=== PATIENT | female | born 1985 | race Caucasian/White ===

== ENCOUNTER 2024-03-08 11:08 | Outpatient (CLI) | payer OTHER, SELFPAY ==
[2024-03-08 12:35] LABS: Basophils Percent Auto 0.4 % (0.2-1.2); Eosinophils Percent Auto 0.5 % (0-4.4); Hematocrit 35.2 % (37.0-47.0); Hemoglobin 12.1 g/dL (12.0-15.0); Immature Granulocyte Absolute 0.02 K/mm3 (0.00-0.031); Immature Granulocyte Percent A 0.3 % (0-0.5); Lymphocytes Absolute Auto 1.65 K/mm3 (0.9-3.2); Lymphocytes Percent Auto 21.3 % (18.3-44.2); Mean Corpuscular HGB Conc 34.4 g/dl (32-36); Mean Corpuscular Hemoglobin 31.3 pg (26-34); Mean Corpuscular Volume 91.2 fl (80-100); Mean Platelet Volume 9.3 fl (7.4-10.4); Monocytes Absolute Auto 0.6 K/mm3 (0.1-0.6); Monocytes Percent Auto 7.2 % (2.6-8.5); Neutrophils Absolute Auto 5.4 K/mm3 (1.3-6.7); Neutrophils Percent Auto 70.3 % (45.5-73.1); Platelet Count Result 370 k/mm3 (150-375); Red Blood Count 3.86 M/mm3 (4.2-5.4); Red Cell Distribution Width 12.3 % (11.5-14.5); White Blood Count 7.7 K/mm3 (4.5-10.0)
[2024-03-08 13:24] LABS: HIV 1/2 Ab P24 Ag Result Negative (Negative)
[2024-03-08 13:34] LABS: Hepatitis B Surface Antigen Negative (Negative)
[2024-03-08 15:25] LABS: Rapid Plasma Reagin Non-Reactive (NonReactive)
[2024-03-11 16:08] LABS: CMV IgG Antibody <0.60 U/mL
[2024-03-17 08:08] LABS: CF Result NEGATIVE (NEGATIVE)
== END 2024-03-08 11:09 | disposition home or self-care (01) ==
PROVIDERS: Visit Provider Student in an Organized Health Care Education/Training Program
DX: N94.89 Other specified conditions associated with female genital organs and menstrual cycle (principal)
CPT/HCPCS: 36415; 81220; 84702; 85025; 86592; 86644; 86703; 86747; 86762; 86787; 86850; 86900; 86901; 87086; 87340; G0432

== ENCOUNTER 2024-06-28 10:28 | Outpatient (CLI) | payer OTHER, SELFPAY ==
[2024-06-28 12:10] LABS: Basophils Percent Auto 0.2 % (0.2-1.2); Eosinophils Absolute Auto 0.2 K/mm3 (0-0.3); Eosinophils Percent Auto 1.9 % (0-4.4); Hematocrit 35.3 % (37.0-47.0); Hemoglobin 11.6 g/dL (12.0-15.0); Immature Granulocyte Absolute 0.04 K/mm3 (0.00-0.031); Immature Granulocyte Percent A 0.4 % (0-0.5); Lymphocytes Absolute Auto 1.45 K/mm3 (0.9-3.2); Lymphocytes Percent Auto 14.4 % (18.3-44.2); Mean Corpuscular HGB Conc 32.9 g/dl (32-36); Mean Corpuscular Hemoglobin 30.1 pg (26-34); Mean Corpuscular Volume 91.5 fl (80-100); Mean Platelet Volume 8.8 fl (7.4-10.4); Monocytes Absolute Auto 0.6 K/mm3 (0.1-0.6); Monocytes Percent Auto 6.4 % (2.6-8.5); Neutrophils Absolute Auto 7.7 K/mm3 (1.3-6.7); Neutrophils Percent Auto 76.7 % (45.5-73.1); Platelet Count Result 358 k/mm3 (150-375); Red Blood Count 3.86 M/mm3 (4.2-5.4); White Blood Count 10.1 K/mm3 (4.5-10.0)
[2024-06-28 12:21] LABS: Glucose 1 Hour PP 50gm Dose 106 mg/dL
[2024-06-28 13:04] LABS: HIV 1/2 Ab P24 Ag Result Negative (Negative)
[2024-06-28 13:30] LABS: Rapid Plasma Reagin Non-Reactive (NonReactive)
== END 2024-06-28 10:29 | disposition home or self-care (01) ==
LOC: ANHLAB 10:30
PROVIDERS: Visit Provider Obstetrics & Gynecology
DX: Z34.90 Encounter for supervision of normal pregnancy, unspecified, unspecified trimester (principal); Z3A.00 Weeks of gestation of pregnancy not specified
CPT/HCPCS: 36415; 82947; 85025; 86592; 86703; G0432

== ENCOUNTER 2024-08-06 14:18 | Outpatient (RCR) | payer OTHER, SELFPAY ==
[2024-07-30 16:44] VITALS: BP 111/69; PULSE 85
[2024-08-03 14:45] VITALS: BP 111/69; PULSE 82
--- NOTE | ~2024-08-06 | US_ITS ---
EXAMINATION: US OB BPP wo non-stress DATE: 08/06/2024 15:20 PIPELINE EXECUTIVE INDICATION: Advanced maternal age TECHNIQUE: Real-time transabdominal obstetric ultrasound. FINDINGS: There is a single intrauterine gestation in vertex presentation. The placenta is posterior without p lacenta previa. cardiac activity and movement is noted with a heart rate of 138 beats per minute. Biophysical profile: breathin of 2 movement: 2 of 2 tone: 2 of 2 Amniotic fluid pocket: 2 of 2. The deepest vertical pocket measurement ranges from 3.6 to 4 cm Total score: 8 of 8 IMPRESSION: 1. Single intrauterine gestation in vertex presentation. 2: Total biophysical profile score of 8 out of 8. Reviewed, dictated and finalized at location A. LINE EXECUTIVE
--- NOTE | ~2024-08-06 | US_ITS ---
EXAMINATION: US OB BPP wo non-stress DATE: 07/30/2024 18:53 APPLICATIONS PACKAGER INDICATION: Advanced maternal age. 1. TECHNIQUE: Real-time transabdominal obstetric ultrasound. FINDINGS: There is a single intrauterine gestation in vertex presentation. The placenta is anterior without pl acenta previa. cardiac activity and movement is noted with a heart rate of 143 beats per minute. Biophysical profile: breathin of 2 movement: 2 of 2 tone: 2 of 2 Amniotic fluid pocket: 2 of 2 (deepest vertical pocket is 4.8 cm) Total score: 8 of 8 IMPRESSION: 1. Single intrauterine gestation in vertex presentation. 2: Total biophysical profile score of 8 out of 8. Reviewed, dictated and finalized at location A. ICATIONS PACKAGER
[2024-08-06 14:54] VITALS: BP 111/69; PULSE 84
== END 2024-10-28 23:59 | disposition home or self-care (01) ==
LOC: ANHOBOP 14:18
PROVIDERS: Visit Provider Student in an Organized Health Care Education/Training Program
DX: O09.513 Supervision of elderly primigravida, third trimester (principal); Z3A.32 32 weeks gestation of pregnancy
CPT/HCPCS: 59025; 76819

== ENCOUNTER 2024-09-22 16:02 | Inpatient (IN) | payer OTHER, SELFPAY ==
[2024-09-22] VITALS (55 sets, daily range): BP systolic 116–150; BP diastolic 57–83; PULSE 80–198; TEMP 36.3–36.8; O2SAT 97–100; BMI 35.2
--- OUTSIDE RECORDS SUMMARY | 2024-09-22 16:11 | XMS_ITS | Data Portability ---
Author Organization [employer], Main Office Address [address] [place] [address] Assessment No assessment recorded. Plan of Treatment Reminders Order Date Submit Date Provider Last Modified By Organization Details Last Modified Time Details Appointments None recorded. Lab None recorded. Referral oral & maxillofac ial surgeon referral - Please call patient to schedule. She is aware that you are not in network with . 2022 023 [email or web address] Radha Oral & Maxillofacial Surgeon, [address] [place] [address], [address], 4 09:00:21 oral & maxillofac ial surgeon referral 2022 023 [email or web address] 3 Ran Gtz MD, [address] [facility], [place], [address], 3 08:51:44 dermatolog ist referral 2022 023 [email or web address] 3 [facility], [address] [place], [address], 3 07:28:51 Procedures None recorded. Surgeries None recorded. Imaging None recorded. Medication Orders cyclobenza wendi 10 mg tablet 2022 023 ZAINAB [id number], [address] , [place], [place], [id number], 3 11:34:16 cyclobenza wendi 5 mg tablet 2022 023 [email or web address] 3 [facility], [address], [place], [place], [id number], 14:18:27 Patient TargetsNo targets recorded. Patient InstructionsNo instructions recorded. Reason for Referral Oral & Maxillofacial Surgeon Referral for Pain of right temporomandibular joint Referring Physician: Brandon Webster [facility], Encounter Date: 03/17/2023 Weigher And Mixer Referral for E czema Referring Physician: Brandon Webster [facility], Encounter Date: 03/17/2023 Oral & Maxillofacial Surgeon Referral for Pain of right temporomandibular joint Please call patient to schedule. She is aware that you are not in network with . Referring Physician: Josh Rincon [facility], Encounter Date: 07/21/2023 Results Created Date Observation Date Name Description Value Unit Range Abnormal Flag Note LastModifiedBy Organization Detail LastModifiedTime 06/03/20 22 06/08/2022 GENEVA/A NTINU CLEAR ANTIB ODIES ,IFA antinuclear antibodies, ifa negati ve Negat kath <1:80 Borde rline 1:80 Posit kath >1:80 ICAP nomen clatu re: AC-0 For more infor ana maría copeland about Hep-2 cell patte rns use ANApa ttern s.org , the offic ial tarsha te for the Inter natio nal Conse nsus on Antin uclea r Antib angelique (GENEVA) Patte rns (ICAP ). Perfo rmed at: [facility] [place] [address] Lab Direc tor: Ash gallardo PhD, Phone : [phone] Not Available [facility] (Lab) [address] [place], [address], 06/08/2022 08:14:43 06/03/20 22 06/03/2022 SEDIM ENTAT ION RATE erythrocyte sedimentatio n rate 20 mm/HR 0-20 Not Available [facility] (Lab) [address] [place], [address], 06/03/2022 13:54:19 06/03/20 22 06/03/2022 CBC/C OMPLE TE BLD COUNT W/DIF F white blood cells 5.0 x10'3 /uL 4.2-10 .8 Not Available [facility] (Lab) [address] [place], [address], 06/03/2022 13:49:14 06/03/20 22 06/03/2022 CBC/C OMPLE TE BLD COUNT W/DIF F red blood cells 4.21 x10'6 /uL 3.80-5 .20 Not Available [facility] (Lab) [address] [place], [address], 06/03/2022 13:49:14 06/03/20 22 06/03/2022 CBC/C OMPLE TE BLD COUNT W/DIF F hemoglobin 12.8 g/dL 12.0-1 5.6 Not Available [facility] (Lab) [address] [place], [address], 06/03/2022 13:49:14 06/03/20 22 06/03/2022 CBC/C OMPLE TE BLD COUNT W/DIF F hematocrit 38.7 % 35.7-4 5.7 Not Available [facility] (Lab) [address] [place], [address], 06/03/2022 13:49:14 06/03/20 22 06/03/2022 CBC/C OMPLE TE BLD COUNT W/DIF F mean red cell volume 91.9 fL 82.0-9 9.0 Not Available [facility] (Lab) [address] [place], [address], 06/03/2022 13:49:14 06/03/20 22 06/03/2022 CBC/C OMPLE TE BLD COUNT W/DIF F mean red cell hemoglobin 30.4 pg 27.0-3 3.0 Not Available [facility] (Lab) [address] [place], [address], 06/03/2022 13:49:14 06/03/20 22 06/03/2022 CBC/C OMPLE TE BLD COUNT W/DIF F mean RBC HGB concentratio n 33.1 g/dL 31.0-3 6.0 Not Available [facility] (Lab) [address] [place], [address], 06/03/2022 13:49:14 06/03/20 22 06/03/2022 CBC/C OMPLE TE BLD COUNT W/DIF F red cell distribution width 12.1 % 11.8-1 5.5 Not Available [facility] (Lab) [address] [place], [address], 06/03/2022 13:49:14 06/03/20 22 06/03/2022 CBC/C OMPLE TE BLD COUNT W/DIF F platelets 369 x10'3 /uL 150-40 0 Not Available [facility] (Lab) [address] [place], [address], 06/03/2022 13:49:14 06/03/20 22 06/03/2022 CBC/C OMPLE TE BLD COUNT W/DIF F mean platelet volume 9.6 fL 9.0-12 .4 Not Available [facility] (Lab) [address] [place], [address], 06/03/2022 13:49:14 06/03/20 22 06/03/2022 CBC/C OMPLE TE BLD COUNT W/DIF F neutrophils 57.9 % 39.0-7 2.0 Not Available [facility] (Lab) [address] [place], [address], 06/03/2022 13:49:14 06/03/20 22 06/03/2022 CBC/C OMPLE TE BLD COUNT W/DIF F lymphocytes 30.2 % 16.0-4 7.0 Not Available [facility] (Lab) [address] [place], [address], 06/03/2022 13:49:14 06/03/20 22 06/03/2022 CBC/C OMPLE TE BLD COUNT W/DIF F monocytes 7.5 % 5.0-12 .0 Not Available [facility] (Lab) [address] [place], [address], 06/03/2022 13:49:14 06/03/20 22 06/03/2022 CBC/C OMPLE TE BLD COUNT W/DIF F eosinophils 3.4 % 1.0-7. 0 Not Available [facility] (Lab) [address] [place], [address], 06/03/2022 13:49:14 06/03/20 22 06/03/2022 CBC/C OMPLE TE BLD COUNT W/DIF F basophils 0.8 % 0.0-2. 0 Not Available [facility] (Lab) [address] [place], [address], 06/03/2022 13:49:14 06/03/20 22 06/03/2022 CBC/C OMPLE TE BLD COUNT W/DIF F immature granulocytes 0.2 % 0.00-0 .50 Not Available [facility] (Lab) [address] [place], [address], 06/03/2022 13:49:14 06/03/20 22 06/03/2022 CBC/C OMPLE TE BLD COUNT W/DIF F neutrophils, absolute count 2.92 x10'3 /uL 1.5-8. 0 Not Available [facility] (Lab) [address] [place], [address], 06/03/2022 13:49:14 06/03/20 22 06/03/2022 CBC/C OMPLE TE BLD COUNT W/DIF F lymphocytes, absolute count 1.52 x10'3 /uL 1.07-3 .43 Not Available [facility] (Lab) [address] [place], [address], 06/03/2022 13:49:14 06/03/20 22 06/03/2022 CBC/C OMPLE TE BLD COUNT W/DIF F monocytes, absolute count 0.38 x10'3 /uL 0.29-0 .99 Not Available [facility] (Lab) [address] [place], [address], 06/03/2022 13:49:14 06/03/20 22 06/03/2022 CBC/C OMPLE TE BLD COUNT W/DIF F eosinophils, absolute count 0.17 x10'3 /uL 0.02-0 .53 Not Available [facility] (Lab) [address] [place], [address], 06/03/2022 13:49:14 06/03/20 22 06/03/2022 CBC/C OMPLE TE BLD COUNT W/DIF F basophils, absolute count 0.04 x10'3 /uL 0.01-0 .08 Not Available [facility] (Lab) [address] [place], [address], 06/03/2022 13:49:14 06/03/20 22 06/03/2022 CBC/C OMPLE TE BLD COUNT W/DIF F immature granulocytes ,absolute 0.01 x10'3 /uL 0.00-0 .05 Not Available [facility] (Lab) [address] [place], [address], 06/03/2022 13:49:14 06/03/20 22 06/03/2022 CBC/C OMPLE TE BLD COUNT W/DIF F nucleated red blood cells 0.0 % -0 Not Available [facility] (Lab) [address] [place], [address], 06/03/2022 13:49:14 11/11/06/03/2022 CBC/C OMPLE TE BLD COUNT W/DIF F NRBC# 0.00 x10'3 /uL Not Available [facility] (Lab) [address] [place], [address], 06/03/2022 13:49:14 06/03/20 22 06/03/2022 C REACT KATH PROTE IN,UL TRA SENS C-reactive protein 0.28 mg/dL 0.0-0. 5 Not Available [facility] (Lab) [address] [place], [address], 06/03/2022 13:18:18 06/03/20 22 06/03/2022 RHEUM ATOID FACTO R rf <8.6 IU/mL 0.0-11 .9 Not Available [facility] (Lab) [address] [place], [address], 06/03/2022 13:18:14 06/03/20 22 06/03/2022 COMPR EHENS KATH METAB OLIC PANEL sodium 140 mmol/ L 137-14 5 Not Available [facility] (Lab) [address] [place], [address], 06/03/2022 13:16:46 06/03/20 22 06/03/2022 COMPR EHENS KATH METAB OLIC PANEL potassium 4.3 mmol/ L 3.5-5. 1 Not Available [facility] (Lab) [address] [place], [address], 06/03/2022 13:16:46 06/03/20 22 06/03/2022 COMPR EHENS KATH METAB OLIC PANEL chloride 104 mmol/ L 98-107 Not Available [facility] (Lab) [address] [place], [address], 06/03/2022 13:16:46 06/03/20 22 06/03/2022 COMPR EHENS KATH METAB OLIC PANEL carbon dioxide 27 mmol/ L 22-30 Not Available [facility] (Lab) [address] [place], [address], 06/03/2022 13:16:46 06/03/20 22 06/03/2022 COMPR EHENS KATH METAB OLIC PANEL anion gap 13.3 mmol/ L 14-22 low Not Available [facility] (Lab) [address] [place], [address], 06/03/2022 13:16:46 06/03/20 22 06/03/2022 COMPR EHENS KATH METAB OLIC PANEL glucose 91 mg/dL 70-99 Not Available [facility] (Lab) [address] [place], [address], 06/03/2022 13:16:46 06/03/20 22 06/03/2022 COMPR EHENS KATH METAB OLIC PANEL BUN 10 mg/dL 8-19 Not Available [facility] (Lab) [address] [place], [address], 06/03/2022 13:16:46 06/03/20 22 06/03/2022 COMPR EHENS KATH METAB OLIC PANEL creatinine 0.68 mg/dL 0.66-1 .25 Not Available [facility] (Lab) [address] [place], [address], 06/03/2022 13:16:46 06/03/20 22 06/03/2022 COMPR EHENS KATH METAB OLIC PANEL GFR >60 Refer ence Range : Forsan ge GFR Healt hy Adult : >60 mL/mi n/1.7 3 m2 Chron ic Kidne y Disea se: 15-60 mL/mi n/1.7 3 m2 Kidne y Failu re: <15/m L/min /1.73 m2 www.n iddk. nih.g ov The MDRD study equat ion has not been valid ated in child forrest <18 years of age; pregn ant women ; the elder ly >85 years of age; or in some racia l or ethni c subgr oups, such as Hispa nics. Outsi de the valid ated genet eters , estim ated GFR is less accur ate, requi ring clini vishal judgm ent on a case- by-ca se basis . Clini vishal inter preta tion for other races and ages must be made by the clini kishan. The MDRD study equat ion has not been valid ated for the evalu ation of serum creat inine relat ed to nutri andrea l statu s or medic ation usage . For perso ns <18 years of age, a pedia tric GFR calcu lator is avail able on the [facility] websi te: https ://pabol w.kid juan pablo.o rg/pr ofess ional s/kdo qi/gf r_cal culat or Not Available [facility] (Lab) [address] [place], [address], 06/03/2022 13:16:46 06/03/20 22 06/03/2022 COMPR EHENS KATH METAB OLIC PANEL alkaline phosphatase 62 U/L 38-126 Not Available [facility] (Lab) [address] [place], [address], 06/03/2022 13:16:46 06/03/20 22 06/03/2022 COMPR EHENS KATH METAB OLIC PANEL alanine aminotransfe rase 12 U/L 0-35 Not Available [facility] (Lab) [address] [place], [address], 06/03/2022 13:16:46 06/03/20 22 06/03/2022 COMPR EHENS KATH METAB OLIC PANEL aspartate aminotransfe rase 12 U/L 15-37 low Not Available [facility] (Lab) [address] [place], [address], 06/03/2022 13:16:46 06/03/20 22 06/03/2022 COMPR EHENS KATH METAB OLIC PANEL bilirubin, total 1.50 mg/dL 0.20-1 .30 high Not Available [facility] (Lab) [address] [place], [address], 06/03/2022 13:16:46 06/03/20 22 06/03/2022 COMPR EHENS KATH METAB OLIC PANEL calcium 9.7 mg/dL 8.4-10 .2 Not Available [facility] (Lab) [address] [place], [address], 06/03/2022 13:16:46 06/03/20 22 06/03/2022 COMPR EHENS KATH METAB OLIC PANEL total protein 7.4 g/dL 6.3-8. 2 Not Available [facility] (Lab) [address] [place], [address], 06/03/2022 13:16:46 06/03/20 22 06/03/2022 COMPR EHENS KATH METAB OLIC PANEL albumin 4.5 g/dL 3.4-5. 0 Not Available [facility] (Lab) [address] [place], [address], 06/03/2022 13:16:46 06/03/20 22 06/03/2022 COMPR EHENS KATH METAB OLIC PANEL globulin 2.9 g/dL 2.6-4. 2 Not Available [facility] (Lab) [address] [place], [address], 06/03/2022 13:16:46 06/03/20 22 06/03/2022 COMPR EHENS KATH METAB OLIC PANEL A/G ratio 1.6 ratio 1.0-2. 0 Not Available [facility] (Lab) [address] [place], [address], 06/03/2022 13:16:46 06/03/20 22 06/03/2022 LIPID PANEL cholesterol 201 mg/dL 140-19 9 high NIH THOMAS NSUS RECOM MENDA TION FOR JLUIS STERO L: ADULT CHILD LOW RISK: <200 <170 BORDE RLINE : <200- 239 ----- HIGH RISK: >240 >200 Not Available [facility] (Lab) [address] [place], [address], 06/03/2022 13:16:41 06/03/20 22 06/03/2022 LIPID PANEL triglyceride s 54 mg/dL 0-150 NIH THOMAS NSUS REPOR T RECOM MENDA TION FOR TRIGL YCERI MORGAN: ADULT CHILD LOW RISK: <150 ----- BODER LINE: 150-1 99 ----- HIGH RISK: >200 ----- Not Available [facility] (Lab) [address] [place], [address], 06/03/2022 13:16:41 06/03/20 22 06/03/2022 LIPID PANEL HDL cholesterol 71 mg/dL 40- Not Available [facility] (Lab) [address] [place], [address], 06/03/2022 13:16:41 06/03/20 22 06/03/2022 LIPID PANEL LDL cholesterol, calculated 119 mg/dL 0-130 NIH THOMAS NSUS REPOR T RECOM MENDA TIONS FOR LDL: ADULT CHILD LOW RISK <130 <110 (OPTI MAL LDL) <100 ----- BORDE RLINE : 130-1 59 ----- HIGH RISK: >160 >130 A TRIGL YCERI DE RESUL T >400 INVAL IDATE S THE CALCU LATIO N FOR LDL FRACT IONAT ION - THE LDL RESUL T WILL NOT BE REPOR CARLO. Not Available [facility] (Lab) [address] [place], [address], 06/03/2022 13:16:41 Result Notes None recorded. 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 Procedures Surgical History Date Name Laterality Status Provider Name and Address Organization Details Recorded Time surgery on study models of jaws completed Not Available [facility], [facility] 09/22/2022 01:23:44 Imaging Results None recorded. Procedure Notes None recorded. Medical Equipment None Reported. Allergies Allergen ID Allergen Name Allergen Category Reaction Reaction Severity Criticality Documentation Date Start Date Code Code System Note Provider Name and Address Organization Details Recorded Time 78421 Product containin g penicilli n (product) medicatio n Not available Not available Not available 09/22/2022 51458 8001 SNOMED Not Available [facility], [facility] 3 01:25:37 Medications Name Sig Start Date Stop Date Status Note LastModified by Organization Details LastModified Time cyclobenzap rine 10 mg tablet TAKE 1 TABLET BY MOUTH EVERY DAY AT BEDTIME 2023 active Not Available Not Available Not Avai lable azithromyci n 250 mg tablet TAKE 2 TABLETS BY MOUTH FOR 1 DAY THEN TAKE 1 TABLET BY MOUTH EVERY DAY 06/03 completed Not Available Not Available Not Available clobetasol 0.05 % topical cream APPLY TOPICALLY TO THE AFFECTED AREA TWICE DAILY NEEDED FOR RASH 06/03 completed Not Available Not Available Not Available ondansetron 4 mg disintegrat ing tablet DISSOLVE 1 TABLET ON THE TONGUE EVERY 8 HOURS NEEDED 06/03 completed Not Available Not Available Not Available cyclobenzap rine 5 mg tablet Take 1 tablet every day by oral route at bedtime. active Not Available Not Available No t Available Lo Loestrin Fe 1 mg-10 mcg (24)/10 mcg (2) tablet TAKE 1 TABLET BY MOUTH DAILY 06/03 completed Not Available Not Available Not Available Paxlovid 300 mg (150 mg x 2)-100 mg tablets in a dose pack TAKE 3 TABLETS BY MOUTH BID FOR 5 DAYS 06/03 completed Not Available Not Available Not Available Vitals Date Recorded Body mass index (BMI) Body height Oxygen saturation Oxygen saturation in Arterial blood by Pulse oximetry Heart rate Body temperature Body weight Systolic blood pressure Diastolic blood pressure Provider Name and Address Organization Details Last Updated DateTime 2 26.3 kg/m2 172.72 cm 99 % 99 % 83 /min 97.2 [degF] 25674.4 8 g 122 mm[Hg] 78 mm[Hg] Not Available [facility] 3 01:24:19 Date Recorded Body height Body mass index (BMI) Body weight Body temperature Heart rate Oxygen saturation Oxygen saturation in Arterial blood by Pulse oximetry Systolic blood pressure Diastolic blood pressure Provider Name and Address Organization Details Last Updated DateTime 3 172.72 cm 27.1 kg/m2 83240.4 4 g 97.8 [degF] 94 /min 98 % 98 % 120 mm[Hg] 72 mm[Hg] Antonia medley CMA [employer] 3 10:21:33 Date Recorded Body height Body mass index (BMI) Body weight Body temperature Heart rate Oxygen saturation Oxygen saturation in Arterial blood by Pulse oximetry Systolic blood pressure Diastolic blood pressure Provider Name and Address Organization Details Last Updated DateTime 3 172.72 cm 24.9 kg/m2 19384.1 5 g 97.8 [degF] 102 /min 98 % 98 % 128 mm[Hg] 82 mm[Hg] Karen Hart MA [employer] 3 11:19:27 Social History None recorded. Functional Status None recorded. Mental Status None recorded. Family History Relationship Description Onset Age of this Age Resolved Age Notes LastModified by Organization Details LastModified Time Maternal Grandmother Rheumatoid arthritis [id number] Not available 09/22/2022 01:23:46 Mother Arthritis [id number] Not available 09/22/2022 01:23:46 Maternal Grandfather Diabetes mellitus [id number] Not available 09/22/2022 01:23:46 Medical History Condition Response BLINDNESS N RHEUMATIC FEVER N KIDNEY STONES N BLADDER PROBLEMS N MRSA N OTHER # 1 N POLIO N LUNG DISEASE/DISORDER N HISTORY OF DRUG ABUSE N RADIATION / CHEMOTHERAPY N COPD N Other # 2 N BLOOD DISEASES N SURGERY N EAR OR HEARING PROBLEMS N MUMPS N SHINGLES N FEMALE PROBLEMS / INFECTIONS N DEPRESSION (INCLUDING POST ) N BOWEL PROBLEMS N STROKE/TIA N THYROID DISEASE N ULCERS N BENIGN PROSTATIC HYPERPLASIA N MEASLES N CERVICALGIA N TB SKIN TEST N HYPOTENSION N MYOCARDIAL INFARCTION N PARAPELGIA N OBESITY N GERD/NAUSEA N ANEURYSM N URINARY/BLADDER/KIDNEY PROBLEMS N CORONARY ARTERY DISEASE (CAD) N MENIERE'S DISEASE N ADDICTION CONCERNS N ENDOMETRIOSIS N USE OF BLOOD THINNERS N SKIN PROBLEMS N EMPHYSEMA N GASTROINTESTINAL DISORDER N MUSCLE,JOINT OR BONE PROBLEMS N GASTROINTESTINAL BLEEDING N BLOOD CLOTS N ASTHMA N CATARACTS N ERECTILE DYSFUNCTION N GI PROBLEMS N CHF N Low Testosterone N NEUROPATHY N INFERTILITY N AIDS/HIV N FRACTURES N CHEMOTHERAPY / RADIATION N VISION/EYE PROBLEMS N LIVER DISEASE N MALE HYPOGONADISM N HYPERTENSION N TOURETTE'S N ANXIETY DISORDER Y BLOOD TRANSFUSION N ANEMIA/BLOOD DISORDER N CHRONIC EAR INFECTIONS N BRONCHITIS N TUBERCULOSIS N GLAUCOMA N FOOT PROBLEM N DIVERTICULITIS N SLEEP APNEA N CHICKENPOX N ALLERGIES/HAYFEVER N INFECTIOUS DISEASE N PROSTATE N HEART ARRHYTHMIA N INSOMNIA N HIGH CHOLESTEROL / HYPERLIPIDEMIA N EYE PROBLEMS N HYPERTHYROIDISM N EATING DISORDER N EDEMA N CHRONIC PAIN SYNDROME N CAROTID BLOCKAGE N CONSTIPATION N BACK / NECK PROBLEMS N HAVE YOU BEEN HOSPITALIZED OR SEEN IN [facility] IN THE PAST YEAR ? N ATHEROSCLEROSIS N BREAST PROBLEMS N DIALYSIS N ECZEMA N FIBROMYALGIA N OSTEOPOROSIS N ARTHRITIS N NO SIGNIFICANT PAST MEDICAL HISTORY N APPENDICITIS N DIABETES, TYPE N BAD TEETH N HEARTBURN / REFLUX N ADD/ADHD N AUTISM SPECTRUM DISORDER (ASD) N HEPATITIS / LIVER DISEASE N PULMONARY DISEASE N GOUT N SLEEP DISORDER N ALZHEIMER'S DISEASE N PAIN N DEMENTIA N HERPES N SEIZURES/EPILEPSY N HEADACHES/MIGRAINES N VASCULAR DISEASE N PACEMAKER N DIZZINESS N HEART DISEASE/HEART PROBLEMS N KIDNEY DISEASE N SCARLET FEVER N MULTIPLE SCLEROSIS N DEVELOPMENTAL OR BEHAVIORAL DISORDERS N MENTAL DISORDER/ILLNESS N CANCER: SPECIFY N CARDIAC ARRHYTHMIA N PNEUMONIA N ATRIAL FIBRILLATION N Gall Stones N PULMONARY EMBOLISM N AUTOIMMUNE DISEASE N Gynecological History Statement/Question Response Abnormal Pap N Flow Moderate Date of LMP 06/02/2022 STIs/STDs N Date of Last Pap 06/22/2020 Duration of Flow (days) 5 Current Control Method None How many live births 0 Frequency of Cycle (Q days) 27 Sexually Active? Y Menses Monthly Y Obstetrics History GPAL:G 0 P 0 0 0 0 Past Encounters Encounter ID Performer Location Encounter Start Date Encounter Closed Date Diagnosis/Indication Diagnosis SNOMED-CT Code Diagnosis ICD10 Code Diagnosis Note [id number] [facility] [address] [place] [address] [place] [address] 06/03/2022 00:00:00 06/03/2022 17:17:35 [id number] Brandon Webster MD [facility] [address] [place] [address] [place] [address] 03/17/2023 10:12:08 03/17/2023 10:33:07 Eczema 38053785 L30.9 Pain of ri ght temporomandibular joint 2680161026 6242609 M26.621 Pt to use heat and use cyclobenza wendi again at night time. [id number] CHUCKY Davis [facility] [address] [place] [address] [place] [address] 07/21/2023 11:12:13 07/21/2023 11:37:03 Pain of right temporomandibular joint 3742925197 6189584 M26.621 Anxiety 16924074 F41.9 Chronic post-traumatic stress disorder 560341336 F43.12 Health Concerns Section Related Observation LastModified by Organization Detai ls LastModified Time None Recorded Concern Status LastModified by Organization Details LastModified Time None Recorded Advance Directives Directive None Recorded Payers Encounter Date Sequence Insurance Name Policy Number Policy Parra Covered Member ID Prara Member ID Guarantor Name 03/17/2023 1 FOR LIFE () Danii Arreola [id number] Danii Arreola 07/21/2023 1 EAST - DOS PRIOR TO 2024 - [employer] () Danii Arreola [id number] Danii Arreola Notes Date Note Type Note Provider Name and Address Organization Details Recorded Time 03/17/2023 text/html Here today for T MJ of Right side. Got a maxillo facial doctor in [facility] and needs referral to this doctor. Her TMJ is getting worse. When opens mouth it hurts. The cyclobenzaprine did help. But got sleep paralysis one night and is afraid to take it again. She feels that her right jaw is tight. Not using heat. Brandon Webster MD [address] [facility] [address], [place], [address], [facility] [employer] [facility] 03/18/2023 14:23:15 07/21/2023 text/html right TMJ . the specialist in [place] does not treat TMJ CHUCKY Davis [address] [facility] [address], [place], [address], [facility] 07/23/2023 20:25:16 OBGyn Episode No OBEpisode recorded.
--- OUTSIDE RECORDS SUMMARY | 2024-09-22 16:11 | XMS_ITS | Continuity of Care Document ---
Author Name [facility] Organization [facility] Care Team Providers Care Transition Lead Name Role Phone [facility] Unavailable Unavailable Problems Combined list of problems from Department of Defense and Veterans Affairs facilities. It does not include entries that were removed or entered in error. Problem Status Onset Date Problem Type Date of Resolution Comments Source Observation For Suspected Condition Inactive Condition DoD Medications Combined list of outpatient medications from Department of Defense and Veterans Affairs facilities.Medications provided include 1) outpatient medications from the last 15 months, and 2) patient-reported medications. Medication Details Route Status Patient Instructions Prescription Expires Prescription Number Last Dispense Date Ordering Provider Order Date Order Qty Source CYCLOBENZAP RINE HCL (cyclobenza wendi HCl), 10 MG, TABLET, ORAL, TEVA [place], 1000 ea. BOTTLE Active [id number] 4 2023 30 Pharmac y Data Transac tion Service Facilit y CYCLOBENZAP RINE HCL (cyclobenza wendi HCl), 10 MG, TABLET, ORAL, TEVA [place], 1000 ea. BOTTLE Active [id number] 4 2023 30 Pharmac y Data Transac tion Service Facilit y CYCLOBENZAP RINE HCL (cyclobenza wendi HCl), 10 MG, TABLET, ORAL, TEVA [place], 1000 ea. BOTTLE Active [id number] 3 2022 30 Pharmac y Data Transac tion Service Facilit y CYCLOBENZAP RINE HCL (cyclobenza wendi HCl), 10 MG, TABLET, ORAL, TEVA [place], 1000 ea. BOTTLE Active [id number] 4 2023 30 Pharmac y Data Transac tion Service Facilit y CYCLOBENZAP RINE HCL (cyclobenza wendi HCl), 5 MG, TABLET, ORAL, ADVAGEN PHARMA, 500 ea. BOTTLE Cancele d [id number] : 2023 0 Pharmac y Data Transac tion Service Facilit y IBUPROFEN (ibuprofen) , 600 MG, TABLET, ORAL, STRIDES PHARMA, 500 ea. BOTTLE Active [id number] 4 2023 40 Pharmac y Data Transac tion Service Facilit y IBUPROFEN (ibuprofen) , 600 MG, TABLET, ORAL, STRIDES PHARMA, 500 ea. BOTTLE Active [id number] 4 2023 20 Pharmac y Data Transac tion Service Facilit y METHYLPREDN ISOLONE (methylpred nisolone), 4 MG, TAB DS PK, ORAL, ZYDUS PHARMACEU, 21 ea. DOSE-PACK Active [id number] 4 2023 21 Pharmac y Data Transac tion Service Facilit y Allergies, Adverse Reactions, Alerts Combined list of allergies from Department of Defense and Veterans Affairs facilities. It does not include entries that were removed or entered in error. Substance Category Reaction Severity Reaction type Status Date Reported Comments Source PENICILLINS Drug allergy (disorder) Unknown active 8 [place], [place] Immunizations Combined list of available immunizations from the Department of Defense and Veterans Affairs facilities. Immunization Series Date Given Administered By Site Reaction Lot Number CVX Code Drug Executive Director Global Brand Marketing Status Comments Source influenza, injectable, quadrivalent, preservative free 2019 SILVIO, () Not Given influenza , injectabl e, quadrival ent, preservat beatris free DoD Encounters Combined list of: 1) Encounters from Department of Veterans Affairs facilities going backup to the last 18 months, not all [place] inpatient encounters are included; 2) Encounters from the Department of [facility] facilities going backup to 280 months. Location Location Details Encounter Type Encounter Number Reason For Visit Attending Provider ADM Date DC Date Status Disposition Source [place], [place](E[place] Room) OUTPATIENT [id number] RICKY STONE 01/09 Released w/o Limitations [place], [place]([facility] Room) Social History Combined list of available smoking, tobacco, and other social history from Department of Defense and Veterans Affairs facilities. Social History Type Response Date Comment Sour e This section is an empty social history section. [facility]
--- OUTSIDE RECORDS SUMMARY | 2024-09-22 16:12 | XMS_ITS | Clinical Summary ---
Author Organization [facility] Address [address] [place] [address] Care Team Providers Care Patent Law Specialist Name Role Phone Unavailable Primary Care Provider Unavailabl e Source Comments [facility],non-owned Affiliates and Associated Physician Practices is amultiple site organization consisting of ambulatory clinics and hospital sitesin [place], [place], [place] and [place]. This disclosure is being madepursuant to the Care Everywhere program and may not contain all information available regarding this patient. Last updated 18.[facility] Allergies Active Allergy Reactions Criticality Noted Date Comments Penicillins Urticaria Medium 03/29/2024 Medications * Be aware that medications may not be up to date on this document. Alwaysverify current medications with the patient. Medication Sig Dispensed Refills Start Date End Date Status Vit-Fe Fumarate-FA ( vitamin) 28-0.8 MG tabletIndications:P regnancy Take 1 (one) tablet by mouth once daily Reasons: Active docusate sodium (Colace) 100 MG capsuleIndications: Constipation Take 1 (one) capsule by mouth once daily Reasons: Constipation Active omeprazole (PriLOSEC) 20 MG capsule Take 1 (one) capsule by mouth 2 times daily, before breakfast and supper Active aspirin (Aspirin) 81 MG chew tablet Take 2 (two) tablets by mouth once daily Active CHOLINE POIndications:choli ne taking one pill and one gummy daily. Gojoy naturals Take by mouth once daily Reasons: choline taking one pill and one gummy daily. Gojoy naturals Active Active Problems Problem Noted Date Diagnosed Date Maternal arthritis complicating 2023 29 weeks gestation of 07/15/2024 Antepartum multigravida of advanced maternal age 0904/03/2024 Normal intrauterine pregnanc y on ultrasound in second trimester 04/03/2024 Osteoarthritis 04/03/2024 Raynaud disease 04/03/2024 Estimated Date of Delivery Comme nts Yes 09/24/2024 Based on Ultraso und Encounters Date Type Department Care Team Description 09/20/2024 10:30 AM METAL CONTROL WORKER - 09/20/2024 11:59 PM METAL CONTROL WORKER Hospital Encounter [facility] [address] [place] [phone] Stanley, Kamryn Pizarro MD Discharge Disposition: Home or Self Care 09/13/2024 9:00 AM METAL CONTROL WORKER - 09/13/2024 11:59 PM METAL CONTROL WORKER Hospital Encounter [facility] [address] [place], [place] [id number] Kely Josue MD Discharge Disposition: Home or Self Care 09/06/2024 8:07 AM METAL CONTROL WORKER - 09/06/2024 11:59 PM METAL CONTROL WORKER Hospital Encounter [facility] [address] [place] [address] Jeremiah Man MD BANNER PAINTER Discharge Disposition: Home or Self Care 08/30/2024 8:56 AM METAL CONTROL WORKER - 08/30/2024 11:59 PM METAL CONTROL WORKER Hospital Encounter [facility] [address] [place] [phone] Niko Haddad MD Discharge Disposition: Home or Self Care 08/23/2024 8:13 AM METAL CONTROL WORKER - 08/23/2024 11:59 PM METAL CONTROL WORKER Hospital Encounter [facility] [address] [place] [phone] Pedro Luu MD Discharge Disposition: Home or Self Care 08/16/2024 8:11 AM METAL CONTROL WORKER - 08/16/2024 11:59 PM METAL CONTROL WORKER Hospital Encounter [facility] [address] [place] [phone] Jeremiah Man MD BANNER PAINTER Discharge Disposition: Home or Self Care 08/09/2024 1:00 PM METAL CONTROL WORKER - 08/09/2024 11:59 PM METAL CONTROL WORKER Hospital Encounter [facility] [address] [place] [phone] Eneida Benjamin MD Boyle, Annelee C, MD Discharge Disposition: Home or Self Care 07/15/2024 12:59 PM METAL CONTROL WORKER - 07/15/2024 11:59 PM METAL CONTROL WORKER Hospital Encounter [facility] [address] [place] [phone] Kely Josue MD Discharge Disposition: Home or Self Care 07/15/2024 12:53 PM METAL CONTROL WORKER - 07/15/2024 12:58 PM METAL CONTROL WORKER Hospital Encounter [facility] [address] [place] [phone] Kely Josue MD Discharge Disposition: Home or Self Care from Last 3 Months Family History Medical History Relation Name Comments Alcohol abuse Father Diabetes - Type 2 Maternal Grandfather Arthritis - Rheumatoid Maternal Grandmother Anxiety Disorder Mother Autoimmune Disease Mother Eating Disorders Mother Depression Sister Relation Name Status Comments Father Maternal Grandfather Maternal Grandmother Mother Sister Social History Tobacco Use Types Packs/Day Years Used Date Smoking Tobacco: Never Smokeless Tobacco: Never Tobacco Cessation:Counseling Given: Not Answered Alcohol Use Standard Drinks/Week Comments Not Currently 0 (1 standard drink = 0.6 oz pur e alcohol) Estimated Date of Delivery Comme nts Yes 09/24/2024 Based on Ultraso und Sex and Gender Information Value Date Recorded Sex Assigned at Not on file Gender Identity Not on file Sexual Orientation Not on file Last Filed Vital Signs Vital Sign Reading Time Taken Comments Blood Pressure 113/74 09/20/2024 12:11 PM METAL CONTROL WORKER Pulse 78 09/20/2024 12:11 PM METAL CONTROL WORKER Temperature - - Respiratory Rate - - Oxygen Saturation - - Inhaled Oxygen Concentration - - Weight 94.3 kg (208 lb) 07/15/2024 1:15 PM METAL CONTROL WORKER Height 172.7 cm (5' 8 ) 07/15/2024 1:15 PM METAL CONTROL WORKER Body Mass Index 31.63 07/15/2024 1:15 PM METAL CONTROL WORKER Plan of Treatment Health Maintenance Due Date Last Done Comments PAP SMEAR 1985 HIV SCREENING 2000 HEPATITIS C SCREENING 08/14/2003 DTAP/TDAP/TD VACCINES (1 - Tdap) 2004 HEPATITIS B VACCINE (1 of 3 - 19+ 3-dose series) 2004 COVID-19 VACCINE (2023-2 5 season) 2024 INFLUENZA VACCINE (#1) 2024 OB-ONE HOUR GLUCOSE 06/18/2024 OB-TDAP CURRENT 06/25/2024 OB-RHOGAM INJECTION 07/02/2024 DEPRESSION SCREENING 07/24/2024 OB-GROUP B STREP SCREEN 08/20/2024 ZOSTER VACCINE (1 of 2) 2035 HIB VACCINE Aged Out No longer eligi ble based on patient's age to complete this topic HPV VACCINE Aged Out No longer eligi ble based on patient's age to complete this topic MENINGOCOCCAL (Group B) VACCINE Aged Out No longer eligible based on patient's age to complete this topic MENINGOCOCCAL VACCINE Aged Out No medina brittney eligible based on patient's age to complete this topic PNEUMOCOCCAL VACCINE Aged Out No long er eligible based on patient's age to complete this topic Respiratory Syncytial Virus (RSV) Vaccine Pt: or over 60 yrs (No Doses Required) Completed Procedures Procedure Name Priority Date/Time Associated Diagnosis Comments BIOPHYSICAL PROFILE W NST Routine 09/20/2024 10:33 AM METAL CONTROL WORKER Maternal arthritis complicating (HCC) 38 weeks gestation of (HCC) 29 weeks gestation of (HCC) Raynaud's disease without gangrene Normal intrauterine on ultrasound in second trimester ([facility]) SONOGRAM - COMPLETE Routine 09/13/2024 8 :56 AM METAL CONTROL WORKER Antepartum multigravida of advanced maternal age (HCC) History of rheumatoid arthritis Encounter for follow-up ultrasound of anatomy ([facility]) 26 weeks gestation of ([facility]) Encounter for ultrasound to assess growth ([facility]) Normal intrauterine on ultrasound in second trimester ([facility]) BIOPHYSICAL PROFILE W NST Routine 09/06/2024 8:25 AM METAL CONTROL WORKER Maternal arthritis complicating (HCC) 34 weeks gestation of (HCC) Antepartum multigravida of advanced maternal age (HCC) Encounter for screening ([facility]) BIOPHYSICAL PROFILE W NST Routine 08/30/2024 9:04 AM METAL CONTROL WORKER Maternal arthritis complicating (HCC) 34 weeks gestation of (HCC) Antepartum multigravida of advanced maternal age (HCC) Encounter for screening (HCC) BIOPHYSICAL PROFILE W NST Routine 08/23/2024 8:16 AM METAL CONTROL WORKER Maternal arthritis complicating (HCC) 34 weeks gestation of (HCC) Antepartum multigravida of advanced maternal age (HCC) Encounter for screening (HCC) BIOPHYSICAL PROFILE W NST Routine 08/16/2024 8:13 AM METAL CONTROL WORKER Maternal arthritis complicating (HCC) 34 weeks gestation of (HCC) Antepartum multigravida of advanced maternal age (HCC) Encounter for screening (HCC) SONOGRAM - COMPLETE Routine 08/09/2024 1 :12 PM METAL CONTROL WORKER Antepartum multigravida of advanced maternal age (HCC) History of rheumatoid arthritis Encounter for follow-up ultrasound of anatomy (HCC) 26 weeks gestation of (HCC) Encounter for ultrasound to assess growth (HCC) Normal intrauterine on ultrasound in second trimester (HCC) SONOGRAM - COMPLETE Routine 07/15/2024 1 2:57 PM METAL CONTROL WORKER Antepartum multigravida of advanced maternal age (HCC) History of rheumatoid arthritis Encounter for follow-up ultrasound of anatomy (HCC) 26 weeks gestation of (HCC) Encounter for ultrasound to assess growth (HCC) from Last 3 Months Results * BIOPHYSICAL PROFILE W NST (09/20/2024 10:33 AM METAL CONTROL WORKER) Only the most recent of5 resultswithin the time period is included. Linked Results Indication ======== AMA Hx Rheumatoid Arthritis, Osteoarthritis History ====== OB History 1 Lab Tests Test Date Result NIPT Low risk Maternal Assessment Physical Exam Height 173 cm, 5 ft 8 in. Weight 104 kg, 229 lb. Initial weight 78 kg, 172 lb. BMI 34.82 kg/m . Initial BMI 26.15 kg/m . Weight gain 26 kg, 57 lb Method ====== Transabdominal ultrasound examination. View: Sufficient ========= Benz . Number of fetuses: 1 Dating ====== Date Details Gest. age MICHELLE Stated MICHELLE 39 w + 3 d 09/24/2024 Assigned dating based on stated MICHELLE, selected on 05/22/2024 39 w + 3 d 09/24/2024 General Evaluation Cardiac activity present. FHR 131 bpm. Presentation: cephalic Placenta: Placental site: fundal Amniotic Fluid Assessment ==== Amount of AF: normal MVP 5.5 cm. LUCILA 14.7 cm. Q1 5.5 cm, Q2 3.3 cm, Q3 3.5 cm, Q4 2.4 cm Biophysical Profile 2: breathing movements 2: Gross body movements 2: tone 2: Amniotic fluid volume NST: reactive 05/02 Biophysical profile score Non Stress Test NST interpretation: reactive. Baseline FHR 125 bpm. Baseline variability: moderate. Accelerations: present. Decelerations: absent Growth Overview Exam date GA BPD (mm) HC (mm) AC (mm) FL (mm) HL (mm) EFW (g) 05/22/2024 22w 1d 55.4 75% 196.5 26% 178.4 61% 38.1 41% 35.9 58% 504 58% 06/19/2024 26w 1d 65.8 54% 241.4 27% 224.4 64% 46.4 17% 43.3 34% 914 44% 07/15/2024 29w 6d 75.8 56% 286.3 62% 282.4 96% 56 24% 51.6 60% 1717 82% 08/09/2024 33w 3d 85 69% 307.4 34% 308.7 87% 64.7 38% 55.4 27% 2399 69% 08/30/2024 36w 3d 91.9 83% 324.6 28% 332.2 80% 70.6 40% 60.5 37% 3057 65% Anatomy The following structures appear normal: Abdomen Stomach. Kidneys. Bladder. Impression ========= Single, live, intrauterine at 39w 3d Amniotic fluid volume: normal Biophysical profile: 05/02 Follow-up ======== Continue weekly testing until delivery. Labor induction is scheduled for 09/22/2024 Coding ====== Procedures [id number]: US Uterus Limited 43794: Biophysical Profile W NST Tyto PACS Anatomical Region Laterality Modality Other 09/20/2024 10:3 3 AM METAL CONTROL WORKER Davonte Allred MD [facility] ORDERABLES * SONOGRAM - COMPLETE (09/13/2024 8:56 AM METAL CONTROL WORKER) Only the most recent of3 resultswithin the time period is included. Linked Results Indication ======== AMA Hx Rheumatoid Arthritis, Osteoarthritis History ====== OB History 1 Lab Tests Test Date Result NIPT Low risk Maternal Assessment Physical Exam Height 173 cm, 5 ft 8 in. Weight 103 kg, 228 lb. Initial weight 78 kg, 172 lb. BMI 34.67 kg/m . Initial BMI 26.15 kg/m . Weight gain 25 kg, 56 lb Method ====== Transabdominal ultrasound examination. View: Sufficient ========= Benz . Number of fetuses: 1 Dating ====== Date Details Gest. age MICHELLE Stated MICHELLE 38 w + 3 d 09/24/2024 Assigned dating based on stated MICHELLE, selected on 05/22/2024 38 w + 3 d 09/24/2024 General Evaluation Cardiac activity present. FHR 133 bpm. Presentation: cephalic Placenta: Placental site: fundal Amniotic Fluid Assessment ==== Amount of AF: normal MVP 7.1 cm. LUCILA 15.4 cm. Q1 2.9 cm, Q2 2.8 cm, Q3 2.6 cm, Q4 7.1 cm Biophysical Profile 2: breathing movements 2: Gross body movements 2: tone 2: Amniotic fluid volume 02/28 Biophysical profile score Growth Overview Exam date GA BPD (mm) HC (mm) AC (mm) FL (mm) HL (mm) EFW (g) 05/22/2024 22w 1d 55.4 75% 196.5 26% 178.4 61% 38.1 41% 35.9 58% 504 58% 06/19/2024 26w 1d 65.8 54% 241.4 27% 224.4 64% 46.4 17% 43.3 34% 914 44% 07/15/2024 29w 6d 75.8 56% 286.3 62% 282.4 96% 56 24% 51.6 60% 1717 82% 08/09/2024 33w 3d 85 69% 307.4 34% 308.7 87% 64.7 38% 55.4 27% 2399 69% 08/30/2024 36w 3d 91.9 83% 324.6 28% 332.2 80% 70.6 40% 60.5 37% 3057 65% Anatomy The following structures appear normal: Abdomen Stomach. Kidneys. Bladder. Impression ========= Single, live, intrauterine at 38w 3d Amniotic fluid volume: normal Biophysical profile: 02/28 Follow-up ======== Continue weekly testing Coding ====== Procedures [id number]: US Uterus Limited [id number]: Biophysical Profile W NST [facility] Anatomical Region Laterality Modality Other 09/13/2024 8:56 AM METAL CONTROL WORKER Davonte Allred MD [facility] ORDERABLES from Last 3 Months
--- OUTSIDE RECORDS SUMMARY | 2024-09-22 16:12 | XMS_ITS | Clinical Summary ---
Author Organization [facility] Address [address] [place] [id number] Care Team Providers Care Marketing Database Analyst Name Role Phone Sonal Hernandez MD Primary Care Provider [phone] Allergies Active Allergy Reactions Criticality Noted Date Comments Clavulanic Acid Hives 09/17/2020 Penicillins Unknown 09/17/2020 Medications triamcinolone 0.1 % cream APPLY TOPICALLY TO RIGHT LOWER LEG TWICE DAILY FOR 21 DAYS NEEDED 1 Active triamcinolone 0.5 % cream 2 (two) times daily. 1 Active Fluticasone Propionate (FLONASE NA) Active Active Problems Problem Noted Date Diagnosed Date TMJ (dislocation of temporomandibular joint) Obsessive compulsive disorder 12/19/2010 Eczema 08/21/1999 Family History Medical History Relation Comments Alcohol Abuse Brother from alcoho l abuse Mental Health Father Possible binge e ating disorder and/or hoarding Depression Maternal Aunt Brief inpatient visit when I was a child Diabetes Maternal Grandfather Managed wit h weight loss, exercise, and medication - no insulin injections Arthritis Maternal Grandmother Arthritis a nd Fibromyalgia Mental Health Mother Possible anorexi a and anxiety Depression Sister Depression and p ossible Histrionic Personality Disorder Miscarriages / Stillbirths Sister Pregn ant with twins but one in utero and other born with defects Relation Status Comments Brother Father Maternal Aunt Maternal Grandfather Maternal Grandmother Mother Sister Social History Tobacco Use Types Packs/Day Years Used Date Smoking Tobacco: Never Smokeless Tobacco: Never Tobacco Cessation:Counseling Given: No Comments:Never Alcohol Use Standard Drinks/Week Comments Never 0 (1 standard drink = 0.6 oz pur e alcohol) PHQ-2 Answer Date Recorded PHQ-2 Score - If the patient scores above 3, please move on to questions 3-9 2 10/22/2021 Comments No Sex and Gender Information Value Date Recorded Sex Assigned at Not on file Legal Sex Female 10:29 AM INTERNAL COMMUNICATIONS WRITER Gender Identity Female 10/19/2021 9:12 AM CDT Sexual Orientation Straight 10/19/2021 9: 12 AM CDT Last Filed Vital Signs Vital Sign Reading Time Taken Comments Blood Pressure 98/80 10/22/2021 10:09 AM CDT Pulse 75 10/22/2021 10:09 AM CDT Temperature 36.6 C (97.8 F) 10/22/2021 10:09 AM CDT Respiratory Rate 14 10/22/2021 10:0 9 AM CDT Oxygen Saturation 100% 10/22/2021 10: 09 AM CDT Inhaled Oxygen Concentration - - Weight 89.2 kg (196 lb 11.2 oz) 022 10:09 AM CDT Height 172.7 cm (5' 8 ) 10/22/2021 10:0 9 AM CDT Body Mass Index 29.91 10/22/2021 10:09 AM CDT Plan of Treatment Health Maintenance Due Date Last Done Comments Cervical Cancer Screening Pa p Smear (Age 30 to 64) Every 3 Years 1985 Annual Physical 1988 Hepatitis C 2003 DTaP, Tdap and Td Vaccines ( 1 - Tdap) 2004 Hepatitis B Vaccines (1 of 3 - 19+ 3-dose series) 2004 Cervical Cancer Screening Pa p with HPV Testing (Age 30 to 64) Every 5 Years 2015 Cervical Cancer Screening with HPV 2015 COVID-19 Vaccine (2023-2 5 season) 2024 Influenza Adult (#1) 2024 HPV Vaccines Aged Out No longer eligi ble based on patient's age to complete this topic Meningococcal B Vaccine Aged Out No l onger eligible based on patient's age to complete this topic Meningococcal Vaccine Aged Out No medina brittney eligible based on patient's age to complete this topic Pneumococcal Vaccine: Pediat rics (0 to 5 Years) and At-Risk Patients (6 to 64 Years) Aged Out No longer eligible b ased on patient's age to complete this topic RSV Immunizations Under 20 Months Aged Out No longer eligible based on patient's age to complete this topic Insurance Care Teams Marketing Database Analyst Relationship Specialty Start Date End Date Sonal Hernandez MD PCP - General FAMILY PRACTICE 10/22/21
--- OUTSIDE RECORDS SUMMARY | 2024-09-22 16:12 | XMS_ITS | Continuity of Care Document ---
Author Name [facility] Address [address] [place] [address] Organization [facility] Care Team Providers Care Fill Technician Name Role Phone [facility] Unavailable Unavailable Allergies, Adverse Reactions, Alerts Substance Category Reaction Severity Reaction type Status Date Reported Comments Source penicillins Assertion Drug allergy Active [facility]
--- OUTSIDE RECORDS SUMMARY | 2024-09-22 16:12 | XMS_ITS | Patient Health Summary ---
Author Organization [facility] Address [address] [place] [address] Care Team Providers Care Frame Trimmer Name Role Phone Unavailable Primary Care Provider Unavailabl e Note from [facility],non-owned Affiliates and Associated Physician Practices is amultiple site organization consisting of ambulatory clinics and hospital sitesin [place], [place], [place] and [place]. This disclosure is being madepursuant to the Care Everywhere program and may not contain all information available regarding this patient. Last updated 18.[facility] Allergies * Penicillins(Urticaria) -Medium Criticality Medications * Be aware that medications may not be up to date on this document. Alwaysverify current medications with the patient. * Vit-Fe Fumarate-FA ( vitamin) 28-0.8 MG tablet Take 1 (one) tablet by mouth once daily Reasons: * docusate sodium (Colace) 100 MG capsule Take 1 (one) capsule by mouth once daily Reasons: Constipation * omeprazole (PriLOSEC) 20 MG capsule Take 1 (one) capsule by mouth 2 times daily, before breakfast and supper * aspirin (Aspirin) 81 MG chew tablet Take 2 (two) tablets by mouth once daily * CHOLINE PO Take by mouth once daily Reasons: choline taking one pill and one gummy daily. [employer] Active Problems Problem Noted Date Diagnosed Date Maternal arthritis complicating 2023 29 weeks gestation of 07/15/2024 Antepartum multigravida of advanced maternal age 0904/03/2024 Normal intrauterine pregnanc y on ultrasound in second trimester 04/03/2024 Osteoarthritis 04/03/2024 Raynaud disease 04/03/2024 Social History Tobacco Use Types Packs/Day Years [...] Comments Blood Pressure 113/74 09/20/2024 12:11 PM FOOD PRESERVATION SCIENTIST Pulse 78 09/20/2024 12:11 PM FOOD PRESERVATION SCIENTIST Temperature - - Respiratory Rate - - Oxygen Saturation - - Inhaled Oxygen Concentration - - Weight 94.3 kg (208 lb) 07/15/2024 1:15 PM FOOD PRESERVATION SCIENTIST Height 172.7 cm (5' 8 ) 07/15/2024 1:15 PM FOOD PRESERVATION SCIENTIST Body Mass Index 31.63 07/15/2024 1:15 PM FOOD PRESERVATION SCIENTIST Procedures * BIOPHYSICAL PROFILE W NST(Performed 09/20/2024) Performed for Maternal arthritis complicating (HCC), 38 weeks gestation of ([facility]), 29 weeks gestation of ([facility]), Raynaud's disease without gangrene, Normal intrauterine on ultrasound in second trimester ([facility]) * SONOGRAM - COMPLETE(Performed 09/13/2024) Performed for Antepartum multigravida of advanced maternal age ([facility]), History of rheumatoid arthritis, Encounter for follow-up ultrasound of anatomy ([facility]), 26 weeks gestation of ([facility]), Encounter for ultrasound to assess growth ([facility]), Normal intrauterine on ultrasound in second trimester ([facility]) * BIOPHYSICAL PROFILE W NST(Performed 09/06/2024) Performed for Maternal arthritis complicating (HCC), 34 weeks gestation of (HCC), Antepartum multigravida of advanced maternal age ([facility]), Encounter for screening ([facility]) * BIOPHYSICAL PROFILE W NST(Performed 08/30/2024) Performed for Maternal arthritis complicating (HCC), 34 weeks gestation of (HCC), Antepartum multigravida of advanced maternal age (HCC), Encounter for screening ([facility]) * BIOPHYSICAL PROFILE W NST(Performed 08/23/2024) Performed for Maternal arthritis complicating (HCC), 34 weeks gestation of (HCC), Antepartum multigravida of advanced maternal age (HCC), Encounter for screening (HCC) * BIOPHYSICAL PROFILE W NST(Performed 08/16/2024) Performed for Maternal arthritis complicating (HCC), 34 weeks gestation of (HCC), Antepartum multigravida of advanced maternal age (HCC), Encounter for screening (HCC) * SONOGRAM - COMPLETE(Performed 08/09/2024) Performed for Antepartum multigravida of advanced maternal age (HCC), History of rheumatoid arthritis, Encounter for follow-up ultrasound of anatomy (HCC), 26 weeks gestation of (HCC), Encounter for ultrasound to assess growth (HCC), Normal intrauterine on ultrasound in second trimester (HCC) * SONOGRAM - COMPLETE(Performed 07/15/2024) Performed for Antepartum multigravida of advanced maternal age (HCC), History of rheumatoid arthritis, Encounter for follow-up ultrasound of anatomy (HCC), 26 weeks gestation of (HCC), Encounter for ultrasound to assess growth (HCC) * SONOGRAM - COMPLETE(Performed 06/19/2024) Performed for Antepartum multigravida of advanced maternal age (HCC), History of rheumatoid arthritis, Encounter for follow-up ultrasound of anatomy (HCC), 26 weeks gestation of (HCC), Encounter for ultrasound to assess growth (HCC) * SONOGRAM - COMPLETE(Performed 05/22/2024) Performed for Antepartum multigravida of advanced maternal age (HCC), History of rheumatoid arthritis, 22 weeks gestation of (HCC), Encounter for follow-up ultrasound of anatomy (HCC) * SONOGRAM - COMPLETE(Performed 04/03/2024) Performed for Antepartum multigravida of advanced maternal age (HCC), Normal intrauterine pregnancyon ultrasound in second trimester (HCC), History of rheumatoid arthritis Results * BIOPHYSICAL PROFILE W NST (09/20/2024 10:33 AM FOOD PRESERVATION SCIENTIST) Only the most recent of5 resultswithin the [...] is scheduled for 09/22/2024 Coding ====== Procedures [id number]: [place] Uterus Limited 21202: Biophysical Profile W NST [place] PACS Anatomical Region Laterality Modality Other 09/20/2024 10:3 3 AM FOOD PRESERVATION SCIENTIST Davonte Allred MD [facility] ORDERABLES * SONOGRAM - COMPLETE (09/13/2024 8:56 AM FOOD PRESERVATION SCIENTIST) Only the most recent of6 resultswithin the time period is included. Linked [...] ======== Continue weekly testing Coding ====== Procedures [id number]: [place] Uterus Limited 55119: [facility] Laterality Modality Other 09/13/2024 8:56 AM FOOD PRESERVATION SCIENTIST Davonte Allred MD [facility] ORDERABLES
--- OUTSIDE RECORDS SUMMARY | 2024-09-22 16:12 | XMS_ITS | Continuity of Care Document ---
Author Organization [facility] Address [address] [place] [address] Phone Care Team Providers Care Administrative Library Assistant Name Role Phone Kaleb Pineda MD Unavailable Unavailable Allergies, Adverse Reactions, Alerts Substance Reaction Status Criticality Penicillins Active No Information POTASSIUM CLAVULANATE Active No Inf ormation AMOXICILLIN TRIHYDRATE Active No In formation Medications Medication Instructions Dosage Effective Dates (start - stop) Status Comments Lexapro 10 mg tablet take 1 tablet by or al route every day 10 MG - Active Procedures Procedure Date OFFICE/OUTPATIENT VISIT, [facility] OFFICE/OUTPATIENT VISIT, [facility] Advance Directives Directive Yes / No Effective Date File Name No Information Encounters Encounter Description Practice Location Reason(s) For Visit Diagnoses Date Provider Providers Copied on Encounter OFFICE/OUTPA TIENT VISIT, [facility], [address] [place], [place], [id number], [place] tel:[phone] [facility] right jaw pain1 (chief complaint) eczema (chief complaint) anxiety1 (chief complaint) Atypical facial painEczemaGeneraliz ed Anxiety Disorder [address] [place], [id number] , [place]. tel:[phone] OFFICE/OUTPA TIENT VISIT, [facility], [address] [place], [place], [id number], [place] tel:[phone] [facility] ear (chief complaint) eczema1 (chief complaint) Otalgia, right earEczema 1 Edwin Manuel. [address], [place], [place], [id number] , . tel:[phone] Family History Family Member Type Diagnosis Age At Onset Mother Problem Alive and well Father Problem unknown Sister Problem Alive and well Payers Payer name Insurance type Covered alliance party ID Authoriza tion(s) No Information Social History Type Description Quantity Date Captured Comments Alcohol Use Details No Caffeine Use Details Unknown Tobacco Use Status Current non-smoker Smoking Status Never smoker Sex Female Vital Signs Date / Time: Height Weight BMI Pulse Rate Blood Pressure Temperature Respiratory Rate Body Surface Area Head Circumference BMI percentile Pulse Ox Inhaled Ox 1:25 PM 68.00 in 180.00 lbs 27.3 7 kg/m eter (2) Chief Complaint And Reason For Visit From encounter dated '03/04/2021 13:06'. right jaw pain1 (chief complaint). 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 Pt c/o tightness and spasm around right TMJ area and also water gets stuck in her right ear for few months Pt wants to see oromaxillary facial surgeon again. Pt denies any ear pain or any hearing loss. eczema (chief complaint). Description: Pt has chronic eczema with intermittent flare up for long time Pt uses steroid cream PRN Pt notices itching with occasional clear drainage. Pt wants to see roving department supervisor. Pt denies ay fever ,or warmth anxiety1 (chief complaint). Description: Pt has chronic anxiety with mild OCD. Pt has been feeling more anxious lately since moving back to [place] and getting new job and everything else Pt denies any depression or any suicidal or homicidal thought. Pt denies any crying spells Pt took cymbalta long time for depression but she is not having any depressions Plan Of Treatment Date Type Action Status Referral Ordered: Oral Maxillofacial Surgery (related to Atypical facial pain) ordered Referral Ordered: Dermatology (related to Eczema) ordered Referral Ordered: Referrals: Oral Maxillofacial Surgery. Evaluate and treat ordered Referral Ordered: Referrals: Dermatology. Evaluate and treat ordered History Of Present Illness Encounter Date Complaint History Of Prese nt Illness anxiety1 Pt has chronic a nxiety with mild OCD. Pt has been feeling more anxious lately since moving back to [place] and getting new job and everything else Pt denies any depression or any suicidal or homicidal thought. Pt denies any crying spells Pt took cymbalta long time for depression but she is not having any depressions eczema Pt has chronic e czema with intermittent flare up for long time Pt uses steroid cream PRN Pt notices itching with occasional clear drainage. Pt wants to see roving department supervisor. Pt denies ay fever ,or warmth right jaw pain1 Pt has chronic r ight TMJ pain with popping sensation and she underwent right TMJ surgery and the cartilage was removed and a new titanium stud was placed in the TMJ cartilage area. Pt c/o tightness and spasm around right TMJ area and also water gets stuck in her right ear for few months Pt wants to see oromaxillary facial surgeon again. Pt denies any ear pain or any hearing loss. ear Pt had right TMJ surgery about one year ago. Since then, she notices intermittent right ear clogged feeling and stuffy feeling almost constantly. Pt has some muffled hearing on right side also. Pt feels that water is easily getting stuck inside right ear Pt denies any ear pain or any drainage Pt denies any left ear issue Pt denies any history of ear wax. . Pt denies any sore throat or sinus issue. Pt states that she has flare up of above symptoms for one week. Pt denies any fever, cough, headache ,etc eczema1 pt has mild ecze ma and she uses steroid cream which is very rarely. Instructions Date Instruction Additional Infor mation No Information Assessments Type Assessment Date assessment Atypical facial pain assessment Eczema assessment Generalized Anxiety Disorder Feb Mental Status Date Cognitive Assessment Orientation - [place] ed to time, place, person, situation.
--- OUTSIDE RECORDS SUMMARY | 2024-09-22 16:12 | XMS_ITS | Data Portability ---
Author Organization ONI Martell [facility] - INPATIENT Address [address] [place] [address] Care Team Providers Care Contracting Analyst Name Role Phone RASHAAD VILLASENOR Primary Care Provider Assessment Encounter Date Assessment Date Assessment LastModified by Organization Details LastModified Time 05/25/2018 05/25/2018 Was referred by PCP for confirmation of IUD being present in the uterine cavity 32-year-old, G0, referred by PCP for confirmation of presence of IUD into the endometrial cavity ultrasound was done today-uterus anteverted, 5.12 cm, mildly heterogeneous, IUD seen centrally located in the endometrium no obvious adnexal masses, follicular cysts seen bilaterally ovaries appear to move with external pressure, small free fluid seen in the right adnexa IUD strings were not seen, explained that sometimes the strings retracted back and get stuck into the uterine cavity IUD due to come out next year, Mirena in place She may want to get next year Complains of right-sided pelvic pain, and mid quadrant pain, started about few weeks ago, sporadic, 3-4/10 scale, taken Aleve at times Not too bad, but she feels that it does come and go On exam there is left-sided lower quadrant pain, but no right-sided adnexal pain Right-sided mid lower quadrant muscle pain noticed There is no recent activity that she would connected to No back pain, no constipation or diarrhea No urinary symptoms I advised to give it some more time, take ibuprofen as needed, and alternate heat cold application Pap smear was done on 04/2018, unsure of the result Lab work was done earlier in the year We will obtain all records from PCP [email or web address] Not available 05/25/2018 12:15:09 Plan of Treatment Reminders Order Date Submit Date Provider Last Modified By Organization Details Last Modified Time Details Appointments None record ed. Lab None record ed. Referral None record ed. Procedures None record ed. Surgeries None record ed. Imaging None record ed. Medication Orders None record ed. Patient TargetsNo targets recorded. Patient Instructions Encounter Date Encounter Id Patient Instructions Last Modified By Organization Details Last Modified Time 05/25/2018 [id number] IUD presence confirmed in the uterine cavity, Mirena due to be removed next year Right-sided mid lower quadrant pain, advised ibuprofen as needed, icy/heat application Give it some more time Pap smear up-to-date, will obtain labs from PCP Patient has no other questions or concerns Patient verbalized understanding all of the above, all her questions were answered and she is satisfied with the explanation and the visit/consultatio n. [email or web address] Not available 05/25/2018 12:14:44 Reason for Referral None Reported. Results Created Date Observation Date Name Description Value Unit Range Abnormal Flag Note LastModifiedBy Organization Detail LastModifiedTime 05/25/20 18 05/25/2018 US, trans vagin al No observ ation record ed. [email or web address] Not Available 2017 12:00:13 05/25/20 18 05/25/2018 US, trans vagin al No observ ation record ed. [email or web address] Not Available 2017 12:00:13 Result Notes None recorded. Problems No Known Problems Procedures Surgical History Date Name Laterality Status Provider Name and Address Organization Details Recorded Time 04/23/2018 Date of Last Pap Smear completed [facility] 05/25/2018 09:34:23 Imaging Results Imaging Date Name Status LastModified by Organization Details LastModified Time 05/25/2018 US, transvaginal completed Informat ion not available 05/28/2018 12:00:13 05/25/2018 US, transvaginal completed Informat ion not available 05/28/2018 12:00:13 Procedure Notes None recorded. Medical Equipment None Reported. Allergies Allergen ID Allergen Name Allergen Category Reaction Reaction Severity Criticality Documentation Date Start Date Code Code System Note Provider Name and Address Organization Details Recorded Time 7222 amoxicill in medicatio n other severe Not available 05/25/2018 723 RxNorm ONI Garcia, [facility] 8 09:32:27 7223 Product containin g penicilli n (product) medicatio n other severe Not available 05/25/2018 36737 8001 SNOMED ONI Garcia, [facility] 8 09:32:46 Medications Not known to be on any medication Vitals Date Recorded Body weight Body mass index (BMI) Body height Systolic blood pressure Diastolic blood pressure Provider Name and Address Organization Details Last Updated DateTime 05/25/2018 33988.58 g 26 kg/m2 172.72 cm 110 mm[Hg] 74 mm[Hg] [facility] Social History Question Answer Notes LastModified by Organizat ion Details LastModified Time Tobacco Smoking Status Never Smoker Not Available [facility] 05/08/2020 03:15:16 Do You Have An Advance Directive? No [id number] Information not available 05/08/2020 What Is Your Level Of Alcohol Consumption? Occasional [id number] Information not available 05/08/2020 If You Are , What Was Your Level Of Alcohol Consumption Prior To ? Occasional [id number] Information not available 05/08/2020 How Many Years Have You Consumed Alcohol? 10 [id number] Information not available 05/08/2020 Is Anesthesia Consult Planned? No [email or web address] Information not available 05/25/2018 Plan No [email or web address] Information n ot available 05/25/2018 Are You Blind Or Do You Have Difficulty Seeing? No [id number] Information not available 05/08/2020 Is Blood Transfusion Acceptable In An Emergency? Yes [id number] Information not available 05/08/2020 What Is Your Level Of Caffeine Consumption? Moderate [id number] Information not available 05/08/2020 Live With Cats/exposure To Cat Litter No [email or web address] Information not available 05/25/2018 How Much Tobacco Do You Chew? None [id number] Information not available 05/08/2020 Are You Currently Employed? Yes [id number] Information not available 05/08/2020 Are You Deaf Or Do You Have Serious Difficulty Hearing? No [id number] Information not available 05/08/2020 What Type Of Diet Are You Following? REGULAR [id number] Information not available 05/08/2020 Which Illicit Or Recreational Drugs Have You Used? 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 1 [id number] Information not available 05/08/2020 On Those Days That You Engage In Moderate To Strenuous Exercise, How Many Minutes, On Average, Do You Exercise? 1 [id number] Information not available 05/08/2020 Have There Been Any Changes To Your Family Or Social Situation? No [id number] Information no t available 05/08/2020 Frequent Air Travel No [email or web address] Information not available 05/25/2018 Are There Any Guns Present In Your Home? No [id number] Information not available 05/08/2020 Hard Of Hearing Or Deaf In One Or Both Ears? No [email or web address] Information not available 05/25/2018 High Blood Pressure No [email or web address] Information not available 05/25/2018 Illicit Drugs Pre- None [email or web address] Information not available 05/25/2018 How Many Years Have You Used Illicit Or Recreational Drugs? 0 [id number] Information not available 05/08/2020 Legally Blind In One Or Both Eyes? No [email or web address] Information no t available 05/25/2018 Live Alone Or With Others? With Others [email or web address] Information not available 05/25/2018 Marital Status [email or web address] Informati on not available 05/25/2018 What Was The Date Of Your Most Recent Tobacco Screening? 05/25/2018 [id number] Information not available 05/08/2020 How Many Children Do You Have? 0 [id number] Information not available 05/08/2020 Are There Any Occupational Health Risks Where You Work? None [id number] Information not available 05/08/2020 Performs Monthly Self-breast Exam? No [email or web address] Information no t available 05/25/2018 Do You Use Protection During Sex? Always [id number] Information not available 05/08/2020 Seat Belts Used Routinely Yes [email or web address] Information not available 05/25/2018 Are You Sexually Active? Yes [id number] Information not available 05/08/2020 Smoke Alarm In Home Yes [email or web address] Information not available 05/25/2018 At What Age Did You Start Smoking Tobacco? 0 [id number] Information not available 05/08/2020 Are You Passively Exposed To Smoke? No [id number] Information no t available 05/08/2020 How Much Tobacco Do You Smoke? No [id number] Information not available 05/08/2020 Smoking Pre- No [email or web address] Information not available 05/25/2018 General Stress Level Low [email or web address] Information not available 05/25/2018 Do You Use Sunscreen Routinely? Yes [id number] Information not available 05/08/2020 Supplements None [email or web address] Information not available 05/25/2018 How Many Years Have You Smoked Tobacco? 0 [id number] Information not available 05/08/2020 Sex: Unknown Functional Status Question Answer Note LastModified by Organizat ion Details LastModified Time Do you have difficulty walking or climbing stairs? No [id number] Information not available 05/08/2020 Do you have difficulty doing errands alone? No [id number] Information not available 05/08/2020 Do you have difficulty dressing or bathing? No [id number] Information not available 05/08/2020 What is your exercise level? Occasional [id number] Information not available 05/08/2020 Mental Status Question Answer Note LastModified by Organization D etails LastModified Time Do you have difficulty concentrating, remembering or making decisions? No [id number] Information no t available 05/08/2020 Family History Relationship Description Onset Age of this Age Resolved Age Notes LastModified by Organization Details LastModified Time Mother Anemia [email or web address] Not availabl e 05/25/2018 09:35:39 Maternal Grandmother Fibromyalgia [email or web address] Not availab le 05/25/2018 09:35:56 Medical History Condition Response Heart Problems N Other N Breast Cancer N Kidney or Bladder Problems N Thyroid Problems N GI Problems N Depression N Lung Disease N Acne N Defects or Inherited Disease N Eating Disorder N Breast Problem N Anemia N Anesthesia Complications N Headaches/Migraines N Psychiatric Illness N Anxiety Disorder N Ovarian Cancer N Diabetes N Blood Transfusions N Arthritis N Infertility N Polyps N Acid Reflux (GERD) N Cancer N Eczema N Varicosities N Stroke N Abuse/Domestic Violence N Asthma N Endometriosis N High Cholesterol N Hepatitis N Heart Disease N Fibromyalgia N Pre-Eclampsia N Hypertension N Osteoporosis N Kidney Disease N Thrombophilias N Gynecological History Statement/Question Response Flow Date of LMP Pain during menses moderate Post Menopausal Bleeding N STIs/STDs N Most Recent Mammogram If Post Menopausal, Age at Menopause 0 Date of Last Colonoscopy Control at End of Visit IUD Abnormal Pap N On BCP's at Conception? N Intermenstual bleeding N HPV Vaccine N Duration of Flow (days) Bleeding after sexual intercourse N Current Control Method IUD Age at Menarche 0 Age at First Child 13 Frequency of Cycle (Q days) Most Recent Bone Density Sexually Active? Y Menses Monthly Date of Last Pap Smear 04/23/2018 Sexual Problems? N LMP Definite Hormone Replacement Therapy N Obstetrics History GPAL:G 0 P 0 0 0 0 Past Encounters Encounter ID Performer Location Encounter Start Date Encounter Closed Date Diagnosis/Indication Diagnosis SNOMED-CT Code Diagnosis ICD10 Code Diagnosis Note [id number] Khushi Martell MD MAIN OFFICE [address] [place] [phone] 05/25/2018 09:20:37 05/25/2018 09:57:15 IUD check 605524284 Z30.431 IUD seen on ultrasound Right lowe r quadrant pain 241618785 R10.31 No cause of pain detected Health Concerns Section Related Observation LastModified by Organization Detai ls LastModified Time None Recorded Concern Status LastModified by Organization Details LastModified Time None Recorded Advance Directives Directive N: Payers Encounter Date Sequence Insurance Name Policy Number Policy Parra Covered Member ID Parra Member ID Guarantor Name 05/25/2018 1 [facility] () Danii Arreola [id number] Danii Arreola Notes Date Note Type Note Provider Name and Address Organization Details Recorded Time 05/25/2018 text/html Pelvic PainReported bypatient.Location :right Onset/Timin-4 weeks Duration:intermitt ent Quality:dull; cramping Alleviating Factors:none Aggravating Factors:none Associated Symptoms:no abdominal pain; no chills; no constipation; no diarrhea; no vaginal discharge; no pain with urination; normal emptying of bladder; no feelings of urgency; no blood in the urine; normal libido; no fever; no nausea; no vomiting; no nocturia; no sexual abuse; no ectopic pregnancies; no endometriosis; no urinary frequency; no vaginal itching or irritation; no dyspareunia;back pain Patient is here in office today for IUD check she was told by her PCP that she couldn't find her iud she had x-ray done & were unable to locate IUD . She reports she has been having pelvic pain for the past 3 weeks & lower back pain . Khuhsi Martell MD [address] [place] [address],[place] [address], [place], [address], [facility] - Khushi Martell, [facility] 05/25/2018 12:17:33 OBGyn Episode No OBEpisode recorded.
--- OUTSIDE RECORDS SUMMARY | 2024-09-22 16:12 | XMS_ITS | Referral Summary ---
Author Organization [facility] Address [address] [place] [address] Care Team Providers Care Program Attendant Name Role Phone Unavailable Primary Care Provider Unavailabl e Source Comments [facility],non-owned Affiliates and Associated Physician Practices is amultiple site organization consisting of ambulatory clinics and hospital sitesin [place], [place]. This disclosure is being madepursuant to the Care Everywhere program and may not contain all information available regarding this patient. Last updated 18.[facility] Encounters Date Type Department Care Team Description 09/20/2024 10:30 AM ASSISTANT PLANT CONTROLLER - 09/20/2024 11:59 PM ASSISTANT PLANT CONTROLLER Hospital Encounter formerly [facility] [address] [place] [phone] Stanley, Kamryn Pizarro MD Discharge Disposition: Home or Self Care 09/13/2024 9:00 AM ASSISTANT PLANT CONTROLLER - 09/13/2024 11:59 PM ASSISTANT PLANT CONTROLLER Hospital Encounter formerly [facility] [address] [place] [phone] Kely Josue MD Discharge Disposition: Home or Self Care 09/06/2024 8:07 AM ASSISTANT PLANT CONTROLLER - 09/06/2024 11:59 PM ASSISTANT PLANT CONTROLLER Hospital Encounter formerly [facility] [address] [place] [phone] Jeremiah Man MD DIAGNOSTICS SALES DEVELOPER Discharge Disposition: Home or Self Care 08/30/2024 8:56 AM ASSISTANT PLANT CONTROLLER - 08/30/2024 11:59 PM ASSISTANT PLANT CONTROLLER Hospital Encounter formerly [facility] [address] [place] [address] Niko Haddad MD Discharge Disposition: Home or Self Care 08/23/2024 8:13 AM ASSISTANT PLANT CONTROLLER - 08/23/2024 11:59 PM ASSISTANT PLANT CONTROLLER Hospital Encounter formerly [facility] [address] [place] [address] Pedro Luu MD Discharge Disposition: Home or Self Care 08/16/2024 8:11 AM ASSISTANT PLANT CONTROLLER - 08/16/2024 11:59 PM ASSISTANT PLANT CONTROLLER Hospital Encounter formerly [facility] [address] [place] [address] Jeremiah Man MD DIAGNOSTICS SALES DEVELOPER Discharge Disposition: Home or Self Care 08/09/2024 1:00 PM ASSISTANT PLANT CONTROLLER - 08/09/2024 11:59 PM ASSISTANT PLANT CONTROLLER Hospital Encounter formerly [facility] [address] [place] [address] Eneida Benjamin MD Boyle, Annelee C, MD Discharge Disposition: Home or Self Care 07/15/2024 12:59 PM ASSISTANT PLANT CONTROLLER - 07/15/2024 11:59 PM ASSISTANT PLANT CONTROLLER Hospital Encounter formerly [facility] [address] [place] [address] Kely Josue MD Discharge Disposition: Home or Self Care 07/15/2024 12:53 PM ASSISTANT PLANT CONTROLLER - 07/15/2024 12:58 PM ASSISTANT PLANT CONTROLLER Hospital Encounter formerly [facility] [address], [place] [id number] Kely Josue MD Discharge Disposition: Home or Self Care from Last 3 Months Allergies Active Allergy Reactions Criticality Noted Date [...] nts Yes 09/24/2024 Based on Ultraso und Social History Tobacco Use Types Packs/Day Years [...] Comments Blood Pressure 113/74 09/20/2024 12:11 PM ASSISTANT PLANT CONTROLLER Pulse 78 09/20/2024 12:11 PM ASSISTANT PLANT CONTROLLER Temperature - - Respiratory Rate - - Oxygen Saturation - - Inhaled Oxygen Concentration - - Weight 94.3 kg (208 lb) 07/15/2024 1:15 PM ASSISTANT PLANT CONTROLLER Height 172.7 cm (5' 8 ) 07/15/2024 1:15 PM ASSISTANT PLANT CONTROLLER Body Mass Index 31.63 07/15/2024 1:15 PM ASSISTANT PLANT CONTROLLER Plan of Treatment Not on file Procedures Procedure Name Priority Date/Time Associated Diagnosis Comments BIOPHYSICAL PROFILE W NST Routine 09/20/2024 10:33 AM ASSISTANT PLANT CONTROLLER Maternal arthritis complicating (HCC) 38 weeks gestation of (HCC) 29 weeks gestation of ([facility]) Raynaud's disease without gangrene Normal intrauterine on ultrasound in second trimester (HCC) SONOGRAM - COMPLETE Routine 09/13/2024 8 :56 AM ASSISTANT PLANT CONTROLLER Antepartum multigravida of advanced maternal age (HCC) History of rheumatoid arthritis Encounter for follow-up ultrasound of anatomy (HCC) 26 weeks gestation of (HCC) Encounter for ultrasound to assess growth (HCC) Normal intrauterine on ultrasound in second trimester (HCC) BIOPHYSICAL PROFILE W NST Routine 09/06/2024 8:25 AM ASSISTANT PLANT CONTROLLER Maternal arthritis complicating (HCC) 34 weeks gestation of (HCC) Antepartum multigravida of advanced maternal age (HCC) Encounter for screening (HCC) BIOPHYSICAL PROFILE W NST Routine 08/30/2024 9:04 AM ASSISTANT PLANT CONTROLLER Maternal arthritis complicating (HCC) 34 weeks gestation of (HCC) Antepartum multigravida of advanced maternal age (HCC) Encounter for screening (HCC) BIOPHYSICAL PROFILE W NST Routine 08/23/2024 8:16 AM ASSISTANT PLANT CONTROLLER Maternal arthritis complicating (HCC) 34 weeks gestation of (HCC) Antepartum multigravida of advanced maternal age (HCC) Encounter for screening (HCC) BIOPHYSICAL PROFILE W NST Routine 08/16/2024 8:13 AM ASSISTANT PLANT CONTROLLER Maternal arthritis complicating (HCC) 34 weeks gestation of (HCC) Antepartum multigravida of advanced maternal age (HCC) Encounter for screening (HCC) SONOGRAM - COMPLETE Routine 08/09/2024 1 :12 PM ASSISTANT PLANT CONTROLLER Antepartum multigravida of advanced maternal age (HCC) History of rheumatoid arthritis Encounter for follow-up ultrasound of anatomy (HCC) 26 weeks gestation of (HCC) Encounter for ultrasound to assess growth (HCC) Normal intrauterine on ultrasound in second trimester (HCC) SONOGRAM - COMPLETE Routine 07/15/2024 1 2:57 PM ASSISTANT PLANT CONTROLLER Antepartum multigravida of advanced maternal age (HCC) History of rheumatoid arthritis Encounter for follow-up ultrasound of anatomy (HCC) 26 weeks gestation of ([facility]) Encounter for ultrasound to assess growth ([facility]) from Last 3 Months Results * BIOPHYSICAL PROFILE W NST (09/20/2024 10:33 AM ASSISTANT PLANT CONTROLLER) Only the most recent of5 resultswithin the [...] is scheduled for 09/22/2024 Coding ====== Procedures [id number]: US Uterus Limited 29760: Biophysical Profile W NST [facility] PACS Anatomical Region Laterality Modality Other 09/20/2024 10:3 3 AM ASSISTANT PLANT CONTROLLER Davonte Allred MD [facility] ORDERABLES * SONOGRAM - COMPLETE (09/13/2024 8:56 AM ASSISTANT PLANT CONTROLLER) Only the most recent of3 resultswithin the [...] ======== Continue weekly testing Coding ====== Procedures [id number]: US Uterus Limited 66103: Biophysical Profile W NST [place] PACS Anatomical Region Laterality Modality Other 09/13/2024 8:56 AM ASSISTANT PLANT CONTROLLER Davonte Allred MD [facility] ORDERABLES from Last 3 Months
--- OUTSIDE RECORDS SUMMARY | 2024-09-22 16:12 | XMS_ITS | Encounter Summary ---
Author Organization [facility] Address [address] [place] [address] Care Team Providers Care District Resource Officer Name Role Phone Unavailable Primary Care Provider Unavailabl e Reason for Referral * (Routine) - Open Specialty Diagnoses / Procedures Referred By Karan vázquez Referred To Contact Diagnoses Maternal arthritis complicating (HCC) 38 weeks gestation of (HCC) 29 weeks gestation of (HCC) Raynaud's disease without gangrene Normal intrauterine on ultrasound in second trimester (HCC) Procedures BIOPHYSICAL PROFILE W Davonte Moncada MD [address] [facility] [address] [place] [address] Referral ID Status Reason Start Date Expiration Date Visits Re quested Visits Authorized [id number] Open 09/20/2024 09/20/2025 1 1 R VALVE REPAIRER * (Routine) - Open Specialty Diagnoses / Procedures Referred By Karan vázquez Referred To Contact Diagnoses Maternal arthritis complicating (HCC) 38 weeks gestation of (HCC) 29 weeks gestation of (HCC) Raynaud's disease without gangrene Normal intrauterine on ultrasound in second trimester ([facility]) Procedures BIOPHYSICAL PROFILE W Davonte Moncada MD [address] [facility] [address] [place] [address] Referral ID Status Reason Start Date Expiration Date Visits Re quested Visits Authorized [id number] Open 09/20/2024 09/20/2025 1 1 R VALVE REPAIRER Reason for Visit * Reason Comments Ultrasound Biophysical Profile Non-stress Test * (Routine) - Open Specialty Diagnoses / Procedures Referred By Contac t Referred To Contact Diagnoses Maternal arthritis complicating (HCC) 38 weeks gestation of (HCC) 29 weeks gestation of (HCC) Raynaud's disease without gangrene Normal intrauterine on ultrasound in second trimester (HCC) Procedures BIOPHYSICAL PROFILE W NST Davonte Allred MD [address] [facility] [address] [address] [place] [address] Referral ID Status Reason Start Date Expiration Date Visits Re quested Visits Authorized [id number] Open 09/20/2024 09/20/2025 1 1 Encounter Details Date Type Department Care Team (Latest Contact Info) Description 09/20/2024 10:30 AM WATER VALVE REPAIRER - 09/20/2024 11:59 PM WATER VALVE REPAIRER Hospital Encounter [facility] [address] [id number] Head, Kamryn Pizarro MD [address] [facility] [address] [address] [place] [address] Discharge Disposition: Home or Self Care Social History Tobacco Use Types Packs/Day Years Used Date Smoking Tobacco: Never Smokeless Tobacco: Never Alcohol Use Standard Drinks/Week Comments Not Currently 0 (1 standard drink = 0.6 oz pur e alcohol) Estimated Date of Delivery Comme nts Yes 09/24/2024 Based on Ultraso und Sex and Gender Information Value Date Recorded Sex Assigned at Not on file Gender Identity Not on file Sexual Orientation Not on file documented as of this encounter Last Filed Vital Signs Vital Sign Reading Time Taken Comments Blood Pressure 113/74 09/20/2024 12:11 PM WATER VALVE REPAIRER Pulse 78 09/20/2024 12:11 PM WATER VALVE REPAIRER Temperature - - Respiratory Rate - - Oxygen Saturation - - Inhaled Oxygen Concentration - - Weight - - Height - - Body Mass Index - - documented in this encounter Medications at Time of Discharge Medication Sig Dispensed Refills Start Date End Date aspirin (Aspirin) 81 MG chew tablet Take 2 (two) tablets by mouth once daily CHOLINE POIndications:choline taking one pill and one gummy daily. Gojoy naturals Take by mouth once daily Reasons: choline taking one pill and one gummy daily. Gojoy naturals docusate sodium (Colace) 100 MG capsuleIndications:Cons tipation Take 1 (one) capsule by mouth once daily Reasons: Constipation omeprazole (PriLOSEC) 20 MG capsule Take 1 (one) capsule by mouth 2 times daily, before breakfast and supper Vit-Fe Fumarate-FA ( vitamin) 28-0.8 MG tabletIndications:Pregn francois Take 1 (one) tablet by mouth once daily Reasons: documented as of this encounter Progress Notes * Melanie Kinney RN - 09/20/2024 12:19 PM CST Patient here today for NST/BPP performed at [place] 39w3d. Patient reports positive movement. Denies cramping, bleeding, and leakage of fluid. Patient note occasional infrequent contractions at home. Patient denies headache, epigastric pain and visual changes. VS per flowsheet. BPP today 05/02. Patient is scheduled for IOL on Monday09/22/[address] Allred. Melanie Kinney RN 09/20/2024 12:24 PM R VALVE REPAIRER documented in this encounter Plan of Treatment Not on file documented as of this encounter Procedures Procedure Name Priority Date/Time Associated Diagnosis Comments BIOPHYSICAL PROFILE W NST Routine 09/20/2024 10:33 AM WATER VALVE REPAIRER Maternal arthritis complicating (HCC) 38 weeks gestation of (HCC) 29 weeks gestation of (HCC) Raynaud's disease without gangrene Normal intrauterine on ultrasound in second trimester (HCC) documented in this encounter Results * BIOPHYSICAL PROFILE W NST (09/20/2024 10:33 AM WATER VALVE REPAIRER) Linked Results Indication ======== AMA Hx Rheumatoid [...] is scheduled for 09/22/2024 Coding ====== Procedures 83699: US Uterus Limited 59150: Biophysical Profile W NST [employer] PACS Anatomical Region Laterality Modality Other 09/20/2024 10:3 3 AM WATER VALVE REPAIRER Davonte Allred MD [facility] ORDERABLES documented in this encounter Visit Diagnoses Diagnosis Maternal arthritis complicating (HCC)- Primary Bone and joint disorders of maternal back, pelvis, and lower limbs, complicating , childbirth, or the puerperium, unspecified as to episode of care 38 weeks gestation of (HCC) state, incidental Antepartum multigravida of advanced maternal age (HCC) Encounter for screening ([facility]) 29 weeks gestation of ([facility]) state, incidental Raynaud's disease without gangrene Normal intrauterine on ultrasound in second trimester ([facility]) documented in this encounter
[2024-09-22 17:12] LABS: Basophils Percent Auto 0.2 % (0.2-1.2); Eosinophils Absolute Auto 0.1 K/mm3 (0-0.3); Eosinophils Percent Auto 0.9 % (0-4.4); Hematocrit 34.7 % (37.0-47.0); Hemoglobin 11.8 g/dL (12.0-15.0); Immature Granulocyte Absolute 0.04 K/mm3 (0.00-0.031); Immature Granulocyte Percent A 0.4 % (0-0.5); Lymphocytes Absolute Auto 1.76 K/mm3 (0.9-3.2); Lymphocytes Percent Auto 18.5 % (18.3-44.2); Mean Corpuscular Hemoglobin 29.7 pg (26-34); Mean Corpuscular Volume 87.4 fl (80-100); Mean Platelet Volume 10.6 fl (7.4-10.4); Monocytes Absolute Auto 0.7 K/mm3 (0.1-0.6); Monocytes Percent Auto 7.6 % (2.6-8.5); Neutrophils Absolute Auto 6.9 K/mm3 (1.3-6.7); Neutrophils Percent Auto 72.4 % (45.5-73.1); Platelet Count Result 344 k/mm3 (150-375); Red Blood Count 3.97 M/mm3 (4.2-5.4); Red Cell Distribution Width 14.9 % (11.5-14.5); White Blood Count 9.5 K/mm3 (4.5-10.0)
[2024-09-22] MEDS: DINOPROSTONE 10 MG VAG INSERT VAGINAL (17:14)
[2024-09-22 18:02] LABS: HIV 1/2 Ab P24 Ag Result Negative (Negative)
[2024-09-22 18:14] LABS: Syphilis IgG/IgM Antibody Negative (Negative)
[2024-09-23] VITALS (206 sets, daily range): BP systolic 71–144; BP diastolic 24–102; PULSE 40–183; RESP 16–18; TEMP 36.5–37.2; O2SAT 78–100
[2024-09-23] MEDS: OXYTOCIN 30 UNITS/NS 500 ML 30 UNITS/500 ML BAG IV CONT (01:05)
[2024-09-23] MEDS: LACTATED RINGERS 1,000 ML 125 ML IV CONT ×2 (01:05→09:02)
[2024-09-23] MEDS: fentaNYL CITRATE INJ (*CRX) 100 MCG/2 ML VIAL 50 MCG IV PUSH ×2 (04:59→09:38)
--- NOTE | 2024-09-23 07:34 | P.HP_ITS ---
H&P: HPI History of Present Illness Date/Time: 09/23/24 07:25 Chief Complaint: induction of labor Narrative: Danii is a 39yo @ 39.6wks who presented last night for IOL. She has been co-managed by [facility] due to AMA; has been undergoing weekly NST/BPP. She reports normal movement. No VB or LOF. Her is complicated by: - AMA... MFM/ GC, LD ASA - ?RA...no meds, w/u pending with PCP...[facility] recommends biweekly testing at 32 weeks Review of Systems Constitutional: Constitutional: Denies chills, Denies fever(s) and Denies headache(s) Eyes: Eyes: Denies change in vision ENT: Denies headache(s) Cardiovascular: Cardiovascular: Denies chest pain and Denies dyspnea Respiratory: Respiratory: Denies dyspnea Genitourinary: Genitourinary: Denies abnormal vaginal bleeding and Denies vaginal discharge Neurologic: Denies headache(s) Psychiatric: Psychiatric: Denies anxiety and Denies depression [facility] Past Medical History Medical History Suppression of menses Rheumatoid arthritis Surgical History Surgical History History of mandibular surgery TMJ Family History Family History Mother Heart disease Grandparent Diabetes mellitus Grandparent Fibromyalgia Rheumatoid arthritis flare Social History Social History Smoking status: Never smoker Alcohol intake: former Alcohol use details: rare Substance use: never Substance use type: does not use Do You Feel Safe in your Home?: Yes Lack of Transportation: No Lack of Food: Never True Current Housing: I Have Housing Concerned About Future Housing: No Difficulty Paying Gas/Electric Bills: No Difficulty Paying for Meds: No Currently Unemployed: No Education: Master's Degree or Higher Difficulty w/ Childcare or Family Care: No Living arrangements: with family Occupation/Education: occupation Gender identity (if verbalized by the patient): Female Spiritual care concerns: No Meds Home Medications and Allergies Home Medications ?Medication ?Instructions ?Recorded ?Confirmed ?Type vits no.126-ferrous fum 1 tablet PO DAILY 03/04/24 09/22/24 History 28 mg iron-folic acid 800 mcg tablet (Classic ) docusate sodium 50 mg capsule 50 mg PO DAILY 04/19/24 09/19/24 History (Stool Softener) aspirin 81 mg chewable tablet 81 mg PO DAILY 05/17/24 09/19/24 History omeprazole 20 mg capsule,delayed 20 mg PO BID 06/14/24 09/22/24 History release fenofibric acid (choline) 45 mg 45 mg PO DAILY 09/11/24 09/19/24 History capsule,delayed release Allergies Allergy/AdvReac Type Severity Reaction Status Date / Time Penicillins Allergy Mild Hives Verified 09/11/24 17:16 Vital Signs Vital Signs - 24 hr 09/22/24 17:10 09/22/24 17:15 09/22/24 17:16 Temperature 97.3 F L Pulse Rate 90 Blood Pressure 150/76 H Pulse Oximetry Oxygen Delivery Room Air 09/22/24 17:31 09/22/24 17:46 09/22/24 17:51 Temperature Pulse Rate 93 99 Blood Pressure 127/74 116/57 L Pulse Oximetry 100 100 Oxygen Delivery 09/22/24 17:56 09/22/24 18:00 09/22/24 18:01 Temperature Pulse Rate 198 H Blood Pressure 120/83 Pulse Oximetry 100 100 Oxygen Delivery 09/22/24 18:06 09/22/24 18:11 09/22/24 18:15 Temperature Pulse Rate 85 Blood Pressure 126/80 Pulse Oximetry 100 100 Oxygen Delivery 09/22/24 18:16 09/22/24 18:21 09/22/24 18:26 Temperature Pulse Rate Blood Pressure Pulse Oximetry 99 100 100 Oxygen Delivery 09/22/24 18:30 09/22/24 18:31 09/22/24 18:36 Temperature Pulse Rate 91 Blood Pressure 128/72 Pulse Oximetry 100 100 Oxygen Delivery 09/22/24 18:41 09/22/24 18:45 09/22/24 18:46 Temperature Pulse Rate 91 Blood Pressure 131/76 Pulse Oximetry 99 100 Oxygen Delivery 09/22/24 18:51 09/22/24 18:56 09/22/24 19:00 Temperature Pulse Rate 86 Blood Pressure 127/78 Pulse Oximetry 100 100 Oxygen Delivery 09/22/24 19:01 09/22/24 19:06 09/22/24 19:11 Temperature Pulse Rate Blood Pressure Pulse Oximetry 100 100 100 Oxygen Delivery 09/22/24 19:15 09/22/24 19:16 Temperature Pulse Rate 95 Blood Pressure 123/81 Pulse Oximetry 100 Oxygen Delivery Exam Const: General: cooperative, comfortable, no acute distress and obese Nutritional Appearance: obese Orientation/consciousness: patient oriented x3 Resp: Effort & Inspection: normal respiratory effort Cardio: Rate: regular rate GI: GI Palp: No abdominal tenderness : Other: FHT's: 130's/ mod may/ + accels/ no decels - cat 1 TOCO: ctxs q2-3min Cervix: 3.5/70/-2 Membranes: AROM, clear 0730 Presentation: cephalic Skin: General skin exam: normal color Neuro: General: patient oriented x3 Extrem: General: normal to inspection Psych: Appearance: grossly normal Affect: normal affect Attitude: c ooperative H&P: Results Labs Labs: Short CBC 09/22/24 Range/Units 17:02 WBC 9.5 (4.5-10.0) K/mm3 Hgb 11.8 L (12.0-15.0) g/dL Hct 34.7 L (37.0-47.0) % Plt Count 344 (150-375) k/mm3 Assessment and Plan Assessment and plan (1) AMA (advanced maternal age) primigravida 35+: Qualifiers: Trimester: third trimester Qualified Code(s): O09.513 - Supervision of elderly primigravida, third trimester Code(s): O09.519 - Supervision of elderly primigravida, unspecified trimester Status: Acute Plan - Cervidil removed shortly after placement due to adverse reaction; cervix f avorable - S/p AROM, clear @ 0730 - Pitocin per protocol - Continuous monitoring; currently reassuring - GBS neg - Anesthesia consult PRN pain
[2024-09-23] MEDS: ONDANSETRON INJ 4 MG/2 ML VIAL IV PUSH (10:32)
[2024-09-23] MEDS: fentaNYL CITRATE INJ (*CRX) 100 MCG/2 ML VIAL IV PUSH (10:35)
[2024-09-23] MEDS: LACTATED RINGERS 1,000 ML 999 ML IV CONT (11:07)
--- NOTE | 2024-09-23 11:16 | P.PNAN_ITS ---
Anes - Initial Pre Proc Eval Procedure: labor epidural Date/Time: 09/23/24 11:16 Surgeon: Shaylee Muse MD Pre Op Diagnosis: labor pain Pre Op Diagnosis: IOL Patient Data Age: 39 Gender: F Height: 1.73 m Weight: 105 kg Last Vital Signs Temp 36.6 C 09/23/24 09:30 Pulse 89 09/23/24 11:15 BP 131/79 09/23/24 11:15 Pulse Ox 100 09/23/24 11:13 O2 Del Method Room Air 09/22/24 17:16 Allergies Allergy/AdvReac Type Severity Reaction Status Date / Time Penicillins Allergy Mild Hives Verified 09/11/24 17:16 Home Medications ?Medication ?Instructions ?Recorded ?Confirmed ?Type vits no.126-ferrous fum 1 tablet PO DAILY 03/04/24 09/22/24 History 28 mg iron-folic acid 800 mcg tablet (Classic ) docusate sodium 50 mg capsule 50 mg PO DAILY 04/19/24 09/19/24 History (Stool Softener) aspirin 81 mg chewable tablet 81 mg PO DAILY 05/17/24 09/19/24 History omeprazole 20 mg capsule,delayed 20 mg PO BID 06/14/24 09/22/24 History release fenofibric acid (choline) 45 mg 45 mg PO DAILY 09/11/24 09/19/24 History capsule,delayed release Laboratory Tests 09/22/24 17:02 WBC 9.5 K/mm3 (4.5-10.0) RBC 3.97 L M/mm3 (4.2-5.4) Hgb 11.8 L g/dL (12.0-15.0) Hct 34.7 L % (37.0-47.0) MCV 87.4 fl (80-100) MCH 29.7 pg (26-34) MCHC 34.0 g/dl (32-36) RDW 14.9 H % (11.5-14.5) Plt Count 344 k/mm3 (150-375) MPV 10.6 H fl (7.4-10.4) Immature Gran % (Auto) 0.4 % (0-0.5) Neut % (Auto) 72.4 % (45.5-73.1) Lymph % (Auto) 18.5 % (18.3-44.2) Johnson % (Auto) 7.6 % (2.6-8.5) Eos % (Auto) 0.9 % (0-4.4) Baso % (Auto) 0.2 % (0.2-1.2) Lymph # (Auto) 1.76 K/mm3 (0.9-3.2) Johnson # (Auto) 0.7 H K/mm3 (0.1-0.6) Eos # (Auto) 0.1 K/mm3 (0-0.3) Baso # (Auto) 0.0 K/mm3 (0.0-0.1) Abs Immat Gran (auto) 0.04 H K/mm3 (0.00-0.031) Absolute Neuts (auto) 6.9 H K/mm3 (1.3-6.7) Absolute Nucleated RBC 0.000 K/mm3 (0.0-0.012) Nucleated RBC % 0.0 % (0.0-0.2) Syphilis IgG/IgM Ab Negative (Negative) HIV 1&2 Ab/P24 Ag 4thGn Negative (Negative) Blood Type O Positive Antibody Screen Negative Patient hx anesthesia problems: none Family hx anesthesia problems: none Results Review: All pre-operative results and documents have been reviewed as part of the pre- operative evaluation. [facility] Past Medical History Medical History Suppression of menses Rheumatoid arthritis Surgical History Surgical History History of mandibular surgery TMJ Family History Family History Mother Heart disease Grandparent Diabetes mellitus Grandparent Fibromyalgia Rheumatoid arthritis flare Social History Social History Smoking status: Never smoker Alcohol intake: former Alcohol use details: rare Substance use: never Substance use type: does not use Do You Feel Safe in your Home?: Yes Lack of Transportation: No Lack of Food: Never True Current Housing: I Have Housing Concerned About Future Housing: No Difficulty Paying Gas/Electric Bills: No Difficulty Paying for Meds: No Currently Unemployed: No Education: Master's Degree or Higher Difficulty w/ Childcare or Family Care: No Living arrangements: with family Occupation/Education: occupation Gender identity (if verbalized by the patient): Female Spiritual care concerns: No Anes - Eval Final PreProcedure Day of Procedure 09/23/24 11:16 Patient weight: obese ASA classification: II Anesthetic plan: proceed Anesthesia type and monitoring: regional epidural and standard monitoring Results Review: All pre-operative results and documents have been reviewed as part of the pre- operative evaluation. Informed Consent: The patient's anesthetic plan and its attendant risks and benefits were discussed with the patient/family/POA. Questions were solicited and answers provided to the satisfaction of the patient/family/POA.
--- NOTE | 2024-09-23 13:44 | P.PCNOB_ITS ---
OB - Vaginal Delivery Note Procedure Delivery date: 09/23/24 Events: Elective Induction of Labor and Other (AMA) Induction method: Per Cervidil Protocol (but removed shortly after placement due to side effects) Delivery augmentation: Rupture of Membranes and Pitocin Delivery monitor: External FHT and Internal Uterine Route of delivery: Episiotomy description: None Laceration Description: Perineal - 2nd Degree Delivery repair: vicryl Quantitative Blood Loss (ml): 300 Anesthesia type: Epidural Disposition: Floor Complications: No immediate complications Baby Date of : 09/23/24 Time of : 13:21 Gestational Age by Date: 39 (.6) gender: Male presentation: vertex position: Left Occiput Anterior Placenta delivery description: Expressed Cord Vessel Description: 3 Vessels, Nuchal Cord, Tight and Delayed Cord Clamping score one minute: 9 score five minutes: 9 Narrative: Danii rapidly progressed to complete dilation with strong desire to push. She pushed for approximately 35 minutes with good maternal effort. She delivered the head over intact perineum. Nuchal cord was noted but tight and was delivered through. She easily delivered the 's shoulders and body without complication. The infant was immediately placed skin to skin and had spontaneo us cry. Delayed cord clamping was performed. The umbilical cord was then doubly clamped and cut. A segment of the cord was collected for cord gases. The remaining cord blood was collected for typing. With Pitocin running and gentle downward traction on the cord, the placenta delivered without complications. Bimanual massage was performed and good uterine tone with minimal bleeding was noted. She was examined and a second-degree perineal laceration was identified. The perineal laceration was repaired in the normal fashion using 2-0 Vicryl and good hemostasis was noted. Bimanual massage was once again performed and a small amount of clots were removed from the uterus but was then noted to have good tone with minimal bleeding. Sponge, lap, instrument, and needle counts were correct at the end of the procedure. Mom and baby were left bonding in the birthing suite in stable condition.
[2024-09-23] MEDS: OXYTOCIN 30 UNITS/NS 500 ML 30 UNITS/500 ML BAG 125 UNITS IV CONT (13:48)
[2024-09-23] MEDS: BENZOCAINE 20% AER SPR (*SP) 56 GM CAN 1 SPRAY TOPICAL (15:36)
[2024-09-23] MEDS: WITCH HAZEL 40 PADS 1 PAD TOPICAL (15:36)
[2024-09-23] MEDS: IBUPROFEN 600 MG TABLET PO (19:10)
[2024-09-23] MEDS: ACETAMINOPHEN 325 MG TABLET 650 MG PO (19:11)
[2024-09-24 03:45] LABS: Hematocrit 28.6 % (37.0-47.0); Hemoglobin 9.5 g/dL (12.0-15.0); Mean Corpuscular HGB Conc 33.2 g/dl (32-36); Mean Corpuscular Hemoglobin 29.8 pg (26-34); Mean Corpuscular Volume 89.7 fl (80-100); Mean Platelet Volume 10.4 fl (7.4-10.4); Platelet Count Result 286 k/mm3 (150-375); Red Blood Count 3.19 M/mm3 (4.2-5.4); Red Cell Distribution Width 15.4 % (11.5-14.5); White Blood Count 12.3 K/mm3 (4.5-10.0)
--- NOTE | 2024-09-24 06:52 | P.PNOB_ITS ---
OB - PN: Subj Subjective Date/time seen: 09/24/24 06:50 Narrative: PPD#1 Danii reports doing well today. 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 Her pain is controlled. She is tolerating regular diet, voiding, passing gas, and ambulating without issues. She is breast feeding. She would like her son circumcised. OB - PN: Obj Data Labs 09/24/24 03:21 OB - PN A/P Assessment and Plan (1) Normal vaginal delivery of first : Code(s): O80 - Encounter for full-term uncomplicated delivery Status: Acute Plan day: 1 Plan: routine care Comments: - PO pain meds - Regular diet - Ambulation and hydration encouraged - Continue putting baby to breast q2-3hr - Circ to be performed Time Spent With Patient Time: Total time spent is greater than 50% in coordination of care (as documented) at patient's floor/unit and/or counseling patient: Review of Systems 2 Constitutional: Constitutional: Denies chills, Denies fever(s) and Denies headache(s) Eyes: Eyes: Denies change in vision ENT: Denies dizziness and Denies headache(s) Cardiovascular: Cardiovascular: Denies chest pain, Denies palpitations and Denies dyspnea Respiratory: Respiratory: Denies cough and Denies dyspnea Gastrointestinal: Gastrointestinal: Denies nausea and Denies vomiting Neurologic: Denies dizziness and Denies headache(s) Endocrine: Endocrine: Denies palpitations Exam 2 Const: General: cooperative, comfortable and no acute distress O rientation/consciousness: patient oriented x3 Resp: Effort & Inspection: normal respiratory effort Auscultation: clear to auscultation bilaterally Cardio: Rate: regular rate GI: Inspection: non-distended GI Palp: No abdominal tenderness and Yes Soft to palpation Auscultation: normal bowel sounds : Other: fundus firm Skin: General skin exam: normal color Neuro: General: patient oriented x3 Extrem: General: normal to inspection Psych: Appearance: grossly normal Affect: normal affect Attitude: c ooperative
--- NOTE | 2024-09-24 07:30 | OBPPTRN ---
Patient transferred to post room # 286 via wheelchair. Support person present. Oriented to unit, room, information board, rooming in, admission packet and security measures. Patient verbalizes understanding.
[2024-09-24 08:22] VITALS: BP 110/77; PULSE 86; RESP 16; TEMP 36.9; O2SAT 100
[2024-09-24] MEDS: IBUPROFEN 600 MG TABLET PO ×3 (08:22→22:40)
[2024-09-24] MEDS: ACETAMINOPHEN 325 MG TABLET 650 MG PO ×3 (08:23→22:40)
[2024-09-24] MEDS: DOCUSATE SODIUM 100 MG CAPSULE PO ×2 (08:23→16:22)
[2024-09-24] MEDS: POLYSACCHARIDE IRON COMPLEX 150 MG CAPSULE PO ×2 (08:23→16:22)
--- NOTE | 2024-09-24 08:45 | OBPPTRN ---
Patient transferred to post room #286 via wheelchair. Support person present. Oriented to unit, room, information board, rooming in, admission packet and security measures. Patient verbalizes understanding.
--- NOTE | 2024-09-24 10:45 | PC.NURSE ---
Met with patient to assess and discuss needs related to feeding. Mother states it is her intention to [exclusively breastfeed & pump and bottle feed]. Reviewed regular emptying of breasts when bottles are given so milk production remains intact. Encouraged mother to breastfeed infant 8-12 times in 24 hours (approximately every 2-3 hours), watching for early feeding cues. Mother educated on milk production, supply and demand, and expectations for in the immediate period. Encouraged feeding on demand and feeding durations of 15 minutes or greater. Mother requested a review of her Spectra breast pump. We put it together, reviewed the 2 modes and how to use them, and how to choose the correct highest, most comfortable suction setting. Educated mom that it is not necessary to pump at this time as long as baby is feeding 8-12 times every 24 hours. Mother instructed to call for assistance if infant will not feed every 3 hours, if there is discomfort with , or if mother has any other questions or concerns. resources provided including the Mom and Baby Guide and name/number on communication board. Mother verbalized understanding. Updated patient?s primary RN with education provided.?
[2024-09-24 13:10] VITALS: BP 114/72; PULSE 83; RESP 18; TEMP 36.1; O2SAT 99
[2024-09-24 22:40] VITALS: BP 122/78; PULSE 84; RESP 18; TEMP 36.6; O2SAT 98
--- NOTE | 2024-09-25 06:48 | PM.OBDSVD ---
DS: Admitting Diagnosis Discharge Date 09/25/24 Admitting Diagnosis Induction of labor DS: Discharge Diagnosis Discharge Diagnosis (1) Normal vaginal delivery of first : Code(s): O80 - Encounter for full-term uncomplicated delivery Status: Acute (2) AMA (advanced maternal age) primigravida 35+: Qualifiers: Trimester: third trimester Qualified Code(s): O09.513 - Supervision of elderly primigravida, third trimester Code(s): O09.519 - Supervision of elderly primigravida, unspecified trimester Status: Acute OB - DS: Summary OB Procedures : NST and Ultrasound OB Procedures Intrapartum: Spontaneous Vag Delivery OB Procedures: : None Peripartum Data Infant Delivery Method: Natural Vaginal Laceration Description: Perineal - 2nd Degree Episiotomy description: None complications: none 1: Gender: Male Disposition of : home Status at Discharge Functional status at discharge: independent ambulation Overall status at discharge: patient is back to baseline Time Spent with Patient Time attestation: Total time spent providing and/or coordinating discharge services: Time spent: Less than 30 minutes Exam Const: General: cooperative, comfortable and no acute distress Nutritional Appearance: obese Orientation/consciousness: patient oriented x3 Resp: Effort & Inspection: normal respiratory effort Auscultation: clear to auscultation bilaterally Cardio: Rate: regular rate GI: Inspection: non-distended GI Palp: No abdominal tenderness and Yes Soft to palpation Auscultation: normal bowel sounds : Other: fundus firm Skin: General skin exam: normal color Neuro: General: patient oriented x3 Extrem: General: normal to inspection Psych: Appearance: grossly normal Affect: normal affect Attitude: cooperative DS: Data Data Completed and Pending Labs on day of discharge: Labs from last 24 hours 09/24/24 03:21 WBC 12.3 H RBC 3.19 L Hgb 9.5 L Hct 28.6 L MCV 89.7 MCH 29.8 MCHC 33.2 RDW 15.4 H Plt Count 286 MPV 10.4 Discharge Plan Discharge Attending physician on discharge: Shaylee Muse Discharging Clinician: Shaylee Muse Anticipated Discharge Date/Time: 09/25/24 11:00 Patient Disposition: Home, Self-Care Activity: may shower and pelvic rest Diet: regular Patient Instructions: Antibiotic Form, Vaginal Delivery (DC) Patient Language: Icelandic Stand Alone Forms: General Discharge Information Follow-up/Referrals: Shaylee Muse MD [Physician] - 4 Weeks Discharge Medications: New acetaminophen 325 mg Tablet 650 mg PO Q6H PRN (Reason: Mild Pain (1-3) Or Headache) Qty: 60 0RF docusate sodium 100 mg Capsule 100 mg PO BID PRN (Reason: Constipation) Qty: 60 0RF ibuprofen 600 mg Tablet 600 mg PO Q6H PRN (Reason: Cramping) Qty: 40 0RF Continued Classic 28 mg iron- 800 mcg tablet 1 tablet PO DAILY Stool Softener 50 mg capsule 50 mg PO DAILY fenofibric acid (choline) 45 mg capsule,delayed release(DR/EC) 45 mg PO DAILY omeprazole 20 mg capsule,delayed release(DR/EC) 20 mg PO BID Discontinued aspirin 81 mg tablet,chewable 81 mg PO DAILY Date of admission: 09/22/24 16:02 Primary Care Provider: PHYSICIAN NOT ON STAFF,NONSTAFF Admitting Provider: Shaylee Muse Attending physician on admission: Shaylee uMse Condition: Stable
[2024-09-25 07:45] VITALS: BP 117/74; PULSE 78; RESP 18; TEMP 36.7; O2SAT 99
[2024-09-25] MEDS: POLYSACCHARIDE IRON COMPLEX 150 MG CAPSULE PO (09:06)
[2024-09-25] MEDS: MULTIVIT/MIN/PREN/FOL AC/IRON TABLET 1 TAB PO (09:06)
[2024-09-25] MEDS: DOCUSATE SODIUM 100 MG CAPSULE PO (09:06)
[2024-09-25] MEDS: ACETAMINOPHEN 325 MG TABLET 650 MG PO (09:07)
[2024-09-25] MEDS: IBUPROFEN 600 MG TABLET PO (09:07)
--- NOTE | 2024-09-25 10:17 | PC.NURSE ---
Patient viewed the discharge video Mother & Baby Care, The First Two Weeks . Patient was given the opportunity and encouraged to ask questions. Patient verbalized understanding of information shared and has been given the mother/baby guide for home reference.
[2024-09-26 14:58] VITALS: BP 112/77; PULSE 88; RESP 18; TEMP 36.7; O2SAT 100
== END 2024-09-25 12:07 | disposition home or self-care (01) | DRG 807 ==
LOC: ANHLDR 16:09 → ANHOBPP 09-23 18:05 → ANHOB2 09-24 07:32
PROVIDERS: Admitting Provider Obstetrics & Gynecology; Visit Provider Obstetrics & Gynecology
DX: O69.1XX0 Labor and delivery complicated by cord around neck, with compression, not applicable or unspecified (principal); Z37.0 Single live birth; Z3A.39 39 weeks gestation of pregnancy; O70.1 Second degree perineal laceration during delivery
CPT/HCPCS: 36415; 85025; 85027; 86593; 86703; 86850; 86900; 86901; A9270; G0432; J2405; J2590; J2795; J3010; J7120